=== PATIENT | male | born 1990 | race Caucasian/White ===

== ENCOUNTER 2017-01-22 10:37 | Observation (INO) | payer OTHER, BC, MEDICAID ==
[2017-01-22] MEDS ORDERED: ONDANSETRON 4 MG/2 ML VIAL IVP ONE (11:09)
[2017-01-22] MEDS ORDERED: NS 1,000 ML IV ONE (11:09)
--- NOTE | 2017-01-22 11:15 | UCPHY ---
H & P Time Seen by Provider: 01/22/17 11:08 Patient Type: Established HPI/ROS: HPI Vomiting since Wednesday. 26-year-old male by private vehicle with his mother. This patient has an extensive psychiatric history. Mother reports that he has been complaining of intermittent upper abdominal/epigastric and right upper quadrant discomfort since Wednesday. He has had associated nonbilious, nonbloody vomiting. No diarrhea. Normal bowel movement yesterday. No bloody or melenic stool. No abdominal surgical history. ROS: Constitutional: No fever, no chills. No weakness. Eyes: No discharge. No changes in vision. ENT: No sore throat. No nasal congestion or rhinorrhea. Respiratory: No cough. No shortness of breath. Cardiac: No chest pain, no palpitations. Gastrointestinal: No abdominal pain, no vomiting, no diarrhea. Genitourinary: No hematuria. No dysuria or increased frequency with urination. Musculoskeletal: No back pain. No neck pain. No myalgias or arthralgias. Skin: No rashes. Neurological: No headache. No focal weakness or altered sensation. Past medical history: Schizophrenia, paranoid delusional disorder, attention deficit hyperactivity disorder. On multiple psychiatric medications. Social history: Here with mother. Nonsmoker. No alcohol. Physical Exam: General Appearance: Alert, no distress. Flat affect. This patient is responding to questions appropriately and in full sentences. This patient appears well-hydrated and well-nourished. Eyes: Pupils equal and round no pallor or injection. No lid edema, erythema or injection. Respiratory: There are no retractions, lungs are clear to auscultation with good air movement bilaterally. Cardiovascular: Regular rate and rhythm. No murmur. Gastrointestinal: Abdomen is soft and nontender, no masses, bowel sounds normal. No focal tenderness at McBurney's point. No Narvaez sign. Neurological: Motor sensory function is grossly intact. Cranial nerves are normal. Gait is normal. Skin: Warm and dry, no rashes. Musculoskeletal: Neck is supple and nontender. Extremities are symmetrical. All joints range without pain or impingement. Psychiatric: No agitation. No depression. Database: EKG: Imaging: Right upper quadrant ultrasound; negative. The gallbladder and common bile ducts are normal. No fluid. Results were discussed with staff radiologist Dr. Riojas. Procedures: Emergency department course: IV placed, patient started on IV normal saline with 1 L to be given over the next hour for hydration. His abdominal exam is benign. However, based on his history we will work him up for gallbladder pathology. Appropriate imaging and blood work ordered. 12:30 p.m., patient re-evaluated. Sleeping at this time. Repeat abdominal exam is soft, nontender and nondistended. Easily arousable. Results of ultrasound discussed with him and his mother. Dehydrated condition and kidney dysfunction discussed with them. Need for admission discussed. The mother feels comfortable taking him over to [facility]. Instructions on transport and admission process discussed with her. 12:35 p.m., discussed with on-call hospitalist. Patient accepted for admission to Dr. Borges of the hospitalist service. Plan for IV hydration and antiemetics. Patient's remaining emergency department course under my care uneventful. He was discharged from Urgent Care with his mother to [facility] for admission as above. Differential Diagnosis: The differential diagnosis on this patient includes but is not limited to food borne illness, viral gastroenteritis. Acute cholecystitis, cholangitis, pancreatitis, obstructive disorder unlikely. This represents a partial list of diagnoses considered. These considerations are based on history, physical exam , past history, reassessment and diagnostic testing. Smoking Status: Former smoker Constitutional: Initial Vital Signs Temperature (C) 36.6 C 01/22/17 11:11 Heart Rate 75 01/22/17 11:11 Respiratory Rate 18 01/22/17 11:11 Blood Pressure 109/83 H 01/22/17 11:11 O2 Sat (%) 93 01/22/17 11:11 O2 Delivery Mode Room Air Allergies/Adverse Reactions: paliperidone Allergy (Unknown, Verified 01/22/17 13:44) risperidone [From Risperdal] Allergy (Unknown, Verified 01/22/17 13:44) Home Medications: Medication Instructions Recorded Brexpiprazole [Rexulti 1 MG (*)] 1 mg PO DAILY@14 01/22/17 Herbals/Supplements -Info Only 1 ea PO DAILY 01/22/17 Levomefolate/Algal Oil 1 each PO DAILY 01/22/17 [Deplin-Algal Oil 15 mg Capsule] Medical Decision Making - Data Points Laboratory Results: Laboratory Results 01/22/17 11:20 01/22/17 11:20 01/22/17 05:45 Ur Random Creatinine 263.1 mg/dL mg/dL Ur Random Sodium < 5.0 mEq/L L mEq/L (30-90) Medications Given: Discontinued Medications Sodium Chloride (Ns) 1,000 mls @ 0 mls/hr IV ONCE ONE PRN Reason: Wide Open Stop: 01/22/17 11:10 Last Admin: 01/22/17 11:47 Dose: 1,000 mls Ondansetron HCl (Zofran) 4 mg IVP EDNOW ONE Stop: 01/22/17 11:10 Last Admin: 01/22/17 11:48 Dose: 4 mg Potassium Chloride (Klor-Con) 40 meq PO ONCE ONE PRN Reason: Protocol Stop: 01/22/17 18:10 Last Admin: 01/22/17 18:40 Dose: 40 meq Departure - Departure Disposition: [facility] Inpatient Acute Clinical Impression: Vomiting, Dehydration, Renal insufficiency Condition: Fair - PQRS PQRS Measurement: Not applicable.
[2017-01-22 11:26] LABS: % IMMATURE GRANULYOCYTES 0.4 % (0.0-1.1); ABSOLUTE IMMATURE GRANULOCYTES 0.06 10^3/uL (0.00-0.10); ADD DIFF? NO; ADD MORPH? NO; ADD SCAN? NO; ATYPICAL LYMPHOCYTE FLAG 0 (0-99); FRAGMENT RBC FLAG 0 (0-99); HEMATOCRIT 47.6 % (40.0-51.0); HEMOGLOBIN 17.6 g/dL (13.7-17.5); LEFT SHIFT FLG 0 (0-99); LIPEMIA HEMOLYSIS FLAG 90 (0-99); MEAN CELL HEMOGLOBIN 28.8 pg (27.9-34.1); MEAN CELL VOLUME 77.9 fL (81.5-99.8); MEAN PLATELET VOLUME 9.7 fL (8.7-11.7); PLATELET CLUMPS FLAG 0 (0-99); PLATELET COUNT 306 10^3/uL (150-400); RED BLOOD CELL COUNT 6.11 10^6/uL (4.40-6.38)
[2017-01-22 11:40] LABS: ALBUMIN 5.2 g/dL (3.5-5.0); BILIRUBIN,TOTAL 0.7 mg/dL (0.1-1.4); BILIRUBIN-CONJUGATED 0.4 mg/dL (0.0-0.5); BILIRUBIN-UNCONJUGATED 0.3 mg/dL (0.0-1.1); CALCIUM 10.2 mg/dL (8.5-10.4); CREATININE 2.1 mg/dL (0.7-1.3); TOTAL PROTEIN 8.5 g/dL (6.3-8.2)
[2017-01-22] MEDS ORDERED: oxyCODONE IR 5 MG TAB PO PRN (14:42)
[2017-01-22] MEDS ORDERED: ACETAMINOPHEN 325 MG TAB PO PRN (14:42)
[2017-01-22] MEDS ORDERED: HYDROmorphONE/DILAUDID 1 MG/ML SYR IVP PRN (14:42)
[2017-01-22] MEDS ORDERED: LORazepam 2 MG/ML INJ IVP PRN (14:42)
[2017-01-22] MEDS ORDERED: ONDANSETRON 4 MG/2 ML VIAL IVP PRN (14:42)
[2017-01-22] MEDS ORDERED: PROMETHAZINE HCL 25 MG/ML INJ IVP PRN (14:42)
[2017-01-22] MEDS ORDERED: NS 1,000 ML IV SCH (14:45)
[2017-01-22] MEDS ORDERED: PROTOCOL MAGNESIUM 1 DOSE IV PRN (17:24)
[2017-01-22] MEDS ORDERED: PROTOCOL POTASSIUM 1 DOSE MISC PRN (17:24)
--- NOTE | 2017-01-22 17:58 | GHP ---
DATE OF ADMISSION: 01/22/2017 CHIEF COMPLAINT: Nausea, vomiting. HISTORY: This is a 27-year-old man who has a history of schizophrenia which has been intermittently poorly controlled, who presents with several days of nausea, vomiting and poor p.o. intake. He als o has had some mild abdominal pain. History is limited as patient is clearly disorganized secondary to his psychiatric illness, though it sounds as if due to his recurrent nausea and vomiting, he has been unable to take his medications, including his psychiatric medications, leading to worsening of his psychiatric symptoms. He denies fevers or chills. At the time of my evaluation, he states he is both nauseous and hungry. He notes his last meal was this morning. His last vomiting was in the emergency room. PAST MEDICAL HISTORY: 1. Schizophrenia. 2. Paranoid delusional disorder. 3. Attention deficit hyperactivity disorder. SOCIAL HISTORY: This is uncertain. Patient presented with his mother initially but she was not jamil ilable at the time of my evaluation. I was not able to obtain a full social history from the patien t secondary to his psychiatric illness, but apparently he is a nonsmoker and denies drugs or alcohol . FAMILY HISTORY: Per chart review is noncontributory. MEDICATIONS: Include: 1. Deplin algal oil. 2. Brexpiprazole. ALLERGIES: Include haloperidol and risperidone. PHYSICAL EXAMINATION: VITAL SIGNS: BP 118/71, heart rate 108, respiratory rate 16, O2 sats 100% on room air. Temperature is 36.9. GENERAL APPEARANCE: This is a well-developed, well-nourished kinga g man. He is in moderate distress. EYES: Anicteric. HENT: Oropharynx clear. CARDIOVASCULAR: T achy, regular, no MRG. PULMONARY: CTA bilaterally. ABDOMEN: Soft, nontender, positive bowel soun ds. EXTREMITIES: No clubbing, cyanosis, or edema. SKIN: Warm, dry, well perfused. NEURO/PSYCH: Patient is tangential, somewhat agitated, but pleasant and interactive. CLINICAL DATA: Labs reviewed. Significant for white blood cell count of 14.09, hematocrit of 47.6, platelets are 306. Chemistry remarkable for a potassium of 3, creatinine of 2.1. AST of 65. Lipa se is 250. Anion gap is elevated at 27. Abdominal ultrasound shows no cholelithiasis or biliary ductal dilation. ASSESSMENT/PLAN: This is a 27-year-old man with past medical history of schizophrenia that has been poorly controlled presenting with nausea, vomiting and acute kidney injury. 1. Nausea and vomiting, sounds most consistent with a viral gastroenteritis. He does not have a ve ry remarkable abdominal exam. Lipase is normal. Liver function tests relatively normal other than mild transaminitis. We will treat conservatively for now with IV fluids and antiemetics. 2. Acute kidney injury in the setting of prolonged nausea and vomiting, likely prerenal. We will o btain urine sodium and creatinine, continue to monitor, continue IV fluids and trend overnight. 3. Anion gap metabolic acidosis, rather marked and likely secondary to starvation ketoacidosis. We will obtain a lactic acid level, as well as check a urinalysis for ketones. We will recheck in the morning. 4. Hypokalemia, will replete. Likely secondary to volume depletion. 5. Decompensated schizophrenia, apparently in the setting of being unable to take his usual medicat ions secondary to prolonged nausea and vomiting. Further history will need to be obtained when jaquan ent's mother is available. We will attempt to resume his home medications. If his symptoms do not improve, he may end up needing an inpatient psychiatric evaluation. He is behaviorally controlled. 6. Disposition: Observation status. Suspect he will need less than 48 hours stay for evaluation a nd management of above. 7. Patient is new to my care. Old records reviewed, summarized as per HPI and past medical history . Care plan reviewed with ER physician, including plans for volume resuscitation. /[id number]/MODL
[2017-01-22] MEDS ORDERED: POTASSIUM CL 10 MEQ TAB PO ONE (18:09)
[2017-01-22 19:17] LABS: POTASSIUM 2.9 mEq/L (3.5-5.2)
[2017-01-22] MEDS ORDERED: NS W/ 20 KCl/L 1,000 ML IV SCH (20:30)
[2017-01-23 06:20] LABS: % IMMATURE GRANULYOCYTES 0.7 % (0.0-1.1); ABSOLUTE IMMATURE GRANULOCYTES 0.06 10^3/uL (0.00-0.10); ADD DIFF? NO; ADD MORPH? NO; ADD SCAN? NO; ATYPICAL LYMPHOCYTE FLAG 10 (0-99); FRAGMENT RBC FLAG 0 (0-99); HEMATOCRIT 44.5 % (40.0-51.0); HEMOGLOBIN 15.7 g/dL (13.7-17.5); LEFT SHIFT FLG 0 (0-99); LIPEMIA HEMOLYSIS FLAG 90 (0-99); MEAN CELL HEMOGLOBIN 29.3 pg (27.9-34.1); MEAN CELL HEMOGLOBIN CONCENTR. 35.3 g/dL (32.4-36.7); MEAN PLATELET VOLUME 9.8 fL (8.7-11.7); PLATELET CLUMPS FLAG 0 (0-99); PLATELET COUNT 222 10^3/uL (150-400); RED BLOOD CELL COUNT 5.36 10^6/uL (4.40-6.38); RED CELL DISTRIBUTION WIDTH 13.4 % (11.5-15.2)
[2017-01-23 06:21] LABS: COLOR YELLOW; LEUKOCYTE ESTERASE,URINE NEGATIVE (NEGATIVE); NITRITE,URINE NEGATIVE (NEGATIVE)
[2017-01-23 06:33] LABS: ANION GAP 13 mEq/L (8-16); CALCIUM 9.2 mg/dL (8.5-10.4); CARBON DIOXIDE 27 mEq/l (22-31); CHLORIDE 96 mEq/L (97-110); GLOMERULAR FILTRATION RATE > 60; GLUCOSE 100 mg/dL (70-100); MAGNESIUM 2.7 mg/dL (1.6-2.3); POTASSIUM 3.2 mEq/L (3.5-5.2); SODIUM 136 mEq/L (134-144)
[2017-01-23] MEDS ORDERED: POTASSIUM CL 10 MEQ TAB PO ONE ×2 (07:27→10:00)
[2017-01-23] MEDS: ONDANSETRON DISINTEGRATING 4 MG TAB PO PRN ×2 (08:22→13:05)
[2017-01-23] MEDS ORDERED: Levomefolate/Algal Oil [Deplin-Algal Oil 15 Mg Capsule] PO SCH (09:00)
[2017-01-23] MEDS ORDERED: POTASSIUM CL 20 MEQ TAB PO ONE (10:30)
[2017-01-23] MEDS ORDERED: BREXPIPRAZOLE 1 MG TAB PO SCH (14:00)
[2017-01-23] MEDS ORDERED: BREXPIPRAZOLE 2 MG TAB PO SCH (14:00)
[2017-01-23] MEDS: DOCUSATE SODIUM 100 MG CAP PO SCH ×2 (14:18→21:09)
--- NOTE | 2017-01-23 15:28 | HOSPPROG ---
Hospitalist Progress Note Assessment/Plan: N/V - this may be self induced in the setting of delusions based on his behaviors today. No active vomiting here, but pt putting finger down his throat. LENA - resolved with IVF's. Schizophrenia with active delusions - continue outpt meds. Psych eval today, he 'll be placed on M1 hold and transferred to ICU while awaiting inpt psych bed. Full code Subjective: Pt is delusional, non-sensical. Denies abdominal pain. Perseverates on his bowels, but not making much sense. Denies active hallucinations, but he is delusional. Objective: Vital Signs Temp Pulse Resp BP Pulse Ox 36.1 C 77 16 131/71 H 98 01/23/17 08:00 01/23/17 08:00 01/23/17 08:00 01/23/17 08:00 01/23/17 08:00 Laboratory Results 01/23/17 06:00 01/23/17 06:00 - Physical Exam Constitutional: no apparent distress Eyes: PERRL Ears, Nose, Mouth, Throat: moist mucous membranes Cardiovascular: regular rate and rhythym Respiratory: no respiratory distress, clear to auscultation Gastrointestinal: normoactive bowel sounds, soft, non-tender abdomen Skin: warm Musculoskeletal: full muscle strength Psychiatric: other (non-linear though process, delusional, anxious) ICD10 Worksheet Patient Problems: Problems Problem Status Onset Dehydration Acute Renal insufficiency Acute Vomiting Acute
[2017-01-23 16:17] VITALS: TEMP 97.5
[2017-01-23 16:41] VITALS: BP 146/75
[2017-01-23] MEDS ORDERED: LORazepam 2 MG/ML INJ IVP ONE (21:00)
[2017-01-23 21:08] VITALS: PULSE 85; RESP 16; O2SAT 100
--- NOTE | 2017-01-24 21:14 | GDS ---
DISCHARGE DIAGNOSES: 1. Nausea and vomiting, resolved. 2. Acute kidney injury, resolved. 3. Schizophrenia with active delusions requiring inpatient psychiatric hospitalization. HISTORY: For details, please see dictated history and physical dated January 22, 2017. In brief, the patient is a 26-year-old male with history of schizophrenia who presents to the emergency department with nausea, vomiting and poor oral intake. He was found to have an acute kidney injury and was ad mitted to the hospital for further management. HOSPITAL COURSE: The patient received IV fluid resuscitation. His labs normalized with his creatin ine decreasing from 2.1-1. He had a normal urinalysis. His urine drug screen was positive for dwayne roger and benzodiazepines. The following morning, the RN reported he was self-inducing vomiting and he also appeared delusional. A psychiatric evaluation was obtained and he was medically cleared an d ultimately transferred to the inpatient psychiatric unit for stabilization. DISPOSITION: The patient is discharged to [address] [place] [address] Health Unit at [facility]. DISCHARGE MEDICATIONS: Please see DrinkSendo for complete updated outpatient medication list. FOLLOWUP: Dr. Ceci Flores, primary care provider, as well as Psychiatry. /[id number]/MODL
== END 2017-01-23 22:11 ==
LOC: CED 10:37 → CEDHOLD 12:31 → F1N 14:01 → F2N 01-23 16:40
PROVIDERS: ADMIT Internal Medicine; ATTEND Internal Medicine
DX: N17.9 Acute kidney failure, unspecified (principal); R11.2 Nausea with vomiting, unspecified; E87.6 Hypokalemia; F20.0 Paranoid schizophrenia; E87.2 Acidosis; Z87.891 Personal history of nicotine dependence
CPT/HCPCS: 76705; 96374; G0378; G0463; J1170; J2405; 80048-PO; 80076-PO; 80305; 83690-PO; 85025-PO

== ENCOUNTER 2017-01-23 22:20 | Inpatient (IN) | payer OTHER, BC, MEDICAID ==
[~2017-01-23 22:20] MED LIST: OLANZapine 10 MG TAB PO PRN
[2017-01-23] MEDS: LORazepam 1 MG TAB PO PRN (22:55)
[2017-01-24] MEDS: BREXPIPRAZOLE 1 MG TAB PO SCH (08:33)
[2017-01-24] MEDS ORDERED: NICOTINE 21 MG/24 HR PATCH TD SCH (09:00)
[2017-01-24] MEDS: LORazepam 1 MG TAB PO PRN ×2 (10:33→21:09)
[2017-01-24] MEDS: MAGNESIUM HYDROXIDE 30 ML UDCUP PO PRN (11:35)
--- NOTE | 2017-01-24 20:42 | SOAPPROG ---
SOAP Progress Note Assessment/Plan: Assessment: 26yo with psychotic d/o and 18 past psych admissions, most recently 3 mo ago to [facility], has been noncompliant with meds Rexulti and uptitration, becoming increasingly delusional. Was initially admitted for IV hydration after eval in Urgent Care 01/22 where mother took him after 2 days of N/V and abd pain. Pt had delusional thoughts around his N/V c/o western medicine making him more ill, being poisoned by neighbors, and needing various herbs to relieve blockages. Was noted to be self-inducing vomiting, and was hyperventilating to send breath to "blocked mesentery". 01/24/2017 12:00 Staff report pt slept 6hr. multiple somatic complaints. is convinced he needs to be on a renal diet. Hx of inducing vomiting related to somatic delusions. Pt interviewed. denied any s/e to current meds, has been given ativan 2mg prn and restarted on Rexulti. informed no renal diet needed, explained he was "pre-renal" when dehydrated if this is where his misunderstanding came from. Calm, cooperative, denied SI/HI or any AH/VH. +somatic delusions. Discussed possible THC link to his N/V/Abd pain sxs, "I do think I need to cut down" on THC. Will restart outpatient med Rexulti 1mg, cont prn Ativan. Monitor for any self- induced vomiting or eating d/o bx driven by his delusions. Safety precautions, incl assault prec Admission dictation to follow Objective: Vital Signs Temp Pulse Resp BP Pulse Ox 36.5 C 80 14 124/59 H 98 01/24/17 06:39 01/24/17 06:39 01/24/17 06:39 01/24/17 06:39 01/24/17 06:39 - Pending Discharge Pending Discharge Within 24 Hours: No Pending Discharge Within 48 Hours: No ICD10 Worksheet Patient Problems: Problems Problem Status Onset Dehydration Acute Renal insufficiency Acute Vomiting Acute
[2017-01-25] MEDS: ACETAMINOPHEN 325 MG TAB PO PRN ×3 (00:28→22:36)
--- NOTE | 2017-01-25 00:50 | BAPA ---
DATE OF SERVICE: 01/24/2017 CHIEF COMPLAINT: "I'm tired and lonely and wanted go home....I'm here because on the I forgot my testosterone shot and I felt bad. A few days before that , I had some mesenteric blockages." HISTORY OF PRESENT ILLNESS: Patient is a 26-year-old male with a history of schizophrenia, who was brought to the Urgent Care clinic by his mother on 2016 complaining of vomiting x 2 days and intermittent upper abdominal/ epigastric discomfort. Upon evaluation, it was determined he needed to be hospitalized for IV hydration and antiemetics, and was sent to [facility] for admission. At [facility], patient was evaluated and noted to be disorganized due to psychiatric illness and had noncompliant with his outpatient medications leading to worsening of psychiatric symptoms. Abdominal ultrasound was negative , and he was initially felt to have a viral gastroenteritis, treated with IV fluid and antiemetics. He was also found to have acute kidney injury in the setting of prolonged nausea and vomiting, felt to be prerenal, and anion gap metabolic acidosis, which was rather marked and likely secondary to starvation ketoacidosis, and hypokalemia, most likely due to volume depletion. Once he was medically stabilized, he was evaluated for psychiatric admission. While on hospital service, he was noted to be attempting to self induce vomiting, putting his finger down his throat. He was delusional and nonsensical with much perseveration on his bowels. On psychiatric evaluation 01/23/2017, patient admitted to EPS that he had been making himself sick by causing himself to throw up and hyperventilate the last 2 days. He was placed on an M1 hold and determined to be in need of psychiatric admission. On admission, reports he has been depressed for 3-4 days with decreased energy although sleeping well. Denies racing thoughts. Denied any auditory or visual hallucinations. States concentration is "okay." Enjoys martial arts, meditating, and reading. Denied any psychotic symptoms of thought insertion or thought withdrawal except when using ecstasy. Did not endorse any delusions overtly; however, has expressed several somatic delusions and has a history of experiencing such. Told staff on medical unit that he had demons in his abdomen. No current physical complaints. No nausea except does have right hip pain chronically x10 years. PAST PSYCHIATRIC HISTORY: Patient has a history of delusional and psychotic symptoms in the past, having been diagnosed with unspecified schizophrenia spectrum and other psychotic disorder. He also has a history of ADHD. There was no history of prior suicide attempts, although patient stated in the past he had taken a bottle of antipsychotic medication because he was "hungry and they tasted sweet." He has been psychiatrically hospitalized approximately 18 times, 5 times in the past year, including most recently at [facility] 10/2016. There is no reported history of violence toward others. Outpatient psychiatrist is Dr. Janene Hunter. Therapist through [facility] is Brynn Vallejo. In the past, he received outpatient psychiatric treatment at [facility], including receiving IM long-acting medication (Risperdal Consta, and Invega) with Dr. Martinez. PAST PSYCHIATRIC MEDICATIONS: Regarding outpatient psychiatric medications, he only is interested in taking Rexulti and Deplin. States he had genetic testing at [facility] and was noted to be a "poor metabolizer," therefore, several medications were determined to not be effective for him, per his report. He also maintains he needs to get back on his testosterone and that several of his current problems are because he missed his testosterone injection over 2 weeks ago. Last took 150 mg 2 weeks prior to his last dose, which was due on 01/22, and he never received. For this, he sees a Dr. Calix at [facility] in [place]. Patient reports having been prescribed Strattera and Adderall in the past but not taking anything now for his reported ADHD diagnosis. He talked of history of weighing more than 300 pounds and feels that he has had an ongoing problem with nausea and vomiting since he gained weight to over 300 pounds in 2012, which he felt was medication related, primarily to Zyprexa. Reports allergy to Risperdal and Invega, giving him a "milk line." SUBSTANCE USE HISTORY: Patient endorsed a history of cocaine, methamphetamine, and marijuana in the past. Reports no cocaine for approximately 1 year, last meth use 6 months ago, marijuana use is almost daily. He denied having dabbing , reports using approximately 3.5 g per day of marijuana maximum, approximately every other day. Denied any opiates or heroin use. No LSD "ever," pressured into trying mushrooms once. No history of IV drug abuse. Used ecstasy in 2014, "Guinean style" and "Euro made pills" of ecstasy in 08/2016. Acupuncture generally for pain, as notes no history of opiate use. Last got drunk in 2014 he recalls. Uses alcohol "rarely," last drink 2 glasses of wine with his mother 1 week ago. He smokes cigarettes 1 pack per day max. No cocaine since 02/2015 when he felt he was "poisoned with it." Denied any other cad designer drafter drugs. Likes marijuana although notes it "makes my spiritual neediness worse." With herbs he takes and plans to try. Particularly presently using "Bu Now Wan," which he states helps circulate the energy and reconditions the phlegm in his long channels. Plans to take James China Campbellan, which he feels will help the nourish the yen in his kidneys. Also Xial Yo Wan to help dredge his liver channels and decrease blockages. Drinks caffeine, 2-5 cups per week. Still has some nausea and gastrointestinal discomfort. PAST MEDICAL HISTORY: History of recurrent nausea/vomiting and gastric discomfort as per HPI. Chronic right hip pain. Low testosterone by self- reported history. LEGAL: Currently on probation for careless driving for 6 more months. Also states he was charged with 3rd degree assault against his mother recently when "I pulled a trash can out of her hands and she fell back." Recalls another legal incident in [place] when he "ran away from a welfare check and got tazed," then was put on probation at age 20. FAMILY PSYCHIATRIC HISTORY: Mother has a history of depression, also alcohol on mother's side of the family. Records indicate mother may have had a history of overdose on pills and alcohol in the past. SOCIAL HISTORY: Lives with his mother. Parents when patient was 3. He has 1 brother 3 years older, minimal communication with him. Thinks that brother "may drink and have a problem with his vasectomy". Father lives out of state. 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 Longest job was with [employer] for 3 years. Lived alone from [id number], which he reports was "scary." Attended [employer] then [employer] then [employer] and reports he was 1 credit shy of completing a freshman year. MENTAL STATUS EXAMINATION: calm, cooperative, casually dressed, normal speech rate and volume becoming more intense with his descriptions of odd physical sensations, normal eye contact, in behavioral control during interview, mood "okay", affect restricted, thoughts notable for somatic delusional complaints at times illogical. denied auditory or visual hallucinations and did not appear to be responding to internal stimuli. denied any suicidal ideation or thoughts to harm others. cognition conversationally intact. insight and judgment both poor. DIAGNOSES ON ADMISSION: 1. Schizophrenia, acute exacerbation. 2. Cannabis use disorder, severe. 3. ADHD, by history PLAN: Admit to 3N, safety precautions including assault precautions. Continue M1 hold. Restart Brexiprazole 1mg daily, add Ativan 1-2mg q 6 hours prn. Had been agitated while on medical unit, and with history of assault charge. Continue Deplin 15mg daily, mother will need to bring home medication. Wants his Testosterone 150mg IM. Not clearly indicated at this time, consider check level. Collateral from [facility]. Also anticipate patient will need STC and court-ordered medications due to his long history of noncompliance. Seems may have been on long-acting injectables in the past. Plan to add another antipsychotic which comes in long-acting injectable after getting more history from [facility]. May have had nausea/vomiting and GI distress from excessive cannabis use. Continue to monitor, hospitalist consult if needed. Monitor for any symptoms of eating disorder, since talked of having nausea/vomiting since weight gain on Zyprexa in the past, although his recent self-induced vomiting seems more driven by somatic delusional preoccupations. Unclear contribution of multiple herbal formulations he reports taking, in addition to THC, to his psychosis. ESTIMATED LENGTH OF STAY: 5 to 7 days. /[id number]/MODL MTDD
[2017-01-25] MEDS: MAG HYDROX/AL HYDROX/SIMETH 30 ML UDCUP PO PRN (06:50)
[2017-01-25] MEDS: LORazepam 1 MG TAB PO PRN ×3 (08:10→19:18)
[2017-01-25] MEDS: BREXPIPRAZOLE 1 MG TAB PO SCH (10:36)
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
[2017-01-26] MEDS: MAG HYDROX/AL HYDROX/SIMETH 30 ML UDCUP PO PRN (03:13)
[2017-01-26] MEDS: MAGNESIUM HYDROXIDE 30 ML UDCUP PO PRN (06:31)
[2017-01-26] MEDS: ACETAMINOPHEN 325 MG TAB PO PRN ×2 (06:48→16:48)
[2017-01-26] MEDS: LORazepam 1 MG TAB PO PRN ×3 (07:01→19:56)
[2017-01-26] MEDS: ARIPiprazole 5 MG TAB PO SCH (08:25)
[2017-01-26] MEDS ORDERED: NON-FORMULARY NEW DRUG (Levomefolate/Algal Oil [Deplin-Algal Oil 15 Mg Capsule] 1 EACH) PO SCH (09:30)
--- NOTE | 2017-01-26 18:10 | SOAPPROG ---
SOAP Progress Note Assessment/Plan: Assessment: Plan: Subjective: Pt seen, discussed with staff. Reports feeling "confused about social networking." Makes numerous odd and tangential references. Laughs inappropriately. Friendly but unable to convey his thoughts meaningfully. Cannot discuss the process of the STC either or make his desires for ongoing treatment known. He does state that he wants to take the Abilify. Objective: Vital Signs Temp Pulse Resp BP Pulse Ox 36.9 C 80 16 129/96 H 99 01/26/17 06:00 01/26/17 06:00 01/26/17 06:00 01/26/17 06:00 01/26/17 06:00 MSE: Calm, coop. Affect is elevated, odd, inapprop. Mood is "good." TP disorganized. TC reveals bizarre, grandiose and paranoid delusions. Denies AH' s but appears to be internally preoccupied at times. - Time Spent With Patient Time Spent With Patient: 25" - Pending Discharge Pending Discharge Within 24 Hours: No Pending Discharge Within 48 Hours: No ICD10 Worksheet Patient Problems: Problems Problem Status Onset Dehydration Acute Renal insufficiency Acute Vomiting Acute
[2017-01-27] MEDS: ACETAMINOPHEN 325 MG TAB PO PRN ×2 (04:08→18:25)
[2017-01-27] MEDS: LORazepam 1 MG TAB PO PRN ×3 (04:08→18:26)
[2017-01-27] MEDS: MAG HYDROX/AL HYDROX/SIMETH 30 ML UDCUP PO PRN (05:37)
[2017-01-27] MEDS: ARIPiprazole 5 MG TAB PO SCH (08:47)
[2017-01-27] MEDS: ALGAL OIL PO SCH (11:04)
[2017-01-27] MEDS: LEVOMEFOLATE PO SCH (11:04)
--- NOTE | 2017-01-27 18:26 | SOAPPROG ---
SOAP Progress Note Assessment/Plan: Assessment: Plan: 01/27/17 18:24 Remains very disorganized. WIll titrate Abilify, monitor. Subjective: Pt seen, discussed with staff. Remains nonsensical, disorganized. Unable to express needs or discuss his condition or care. Pleasant and interactive. No behavioral issues. Objective: Vital Signs Temp Pulse Resp BP Pulse Ox 36.7 C 90 18 136/61 H 97 01/27/17 06:00 01/27/17 06:00 01/27/17 06:00 01/27/17 06:00 01/27/17 06:00 MSE: Well-groomed, pleasant and coop. Affect is elevated with hebephrenic grin. Mood is "great" TP disorganized. TC reveals paranoid and grandiose thoughts, internal preoccupation. - Time Spent With Patient Time Spent With Patient: 15" - Pending Discharge Pending Discharge Within 24 Hours: No Pending Discharge Within 48 Hours: No ICD10 Worksheet Patient Problems: Problems Problem Status Onset Dehydration Acute Renal insufficiency Acute Vomiting Acute
[2017-01-28] MEDS: LORazepam 1 MG TAB PO PRN ×4 (01:25→21:41)
[2017-01-28] MEDS: MAG HYDROX/AL HYDROX/SIMETH 30 ML UDCUP PO PRN (02:45)
[2017-01-28] MEDS: ARIPiprazole 5 MG TAB PO SCH (09:31)
[2017-01-28] MEDS: LEVOMEFOLATE PO SCH (09:31)
[2017-01-28] MEDS: ALGAL OIL PO SCH (09:31)
[2017-01-28] MEDS: MAGNESIUM HYDROXIDE 30 ML UDCUP PO PRN (11:39)
[2017-01-28] MEDS: ACETAMINOPHEN 325 MG TAB PO PRN ×2 (14:43→18:52)
--- NOTE | 2017-01-28 16:06 | SOAPPROG ---
SOAP Progress Note Assessment/Plan: Assessment: Plan: 01/27/17 18:24 Remains very disorganized. WIll titrate Abilify, monitor. 01/28/17 16:06 Slight improvement. CCM. Subjective: Pt seen, discussed with staff. Reports feeling "fine except for my liver pain. " When asked about his purging, he states it was due to "my colon and liver problems." He denied intentionally vomiting at first and then later admitted it. Objective: Vital Signs Temp Pulse Resp BP Pulse Ox 36.7 C 75 12 130/59 H 96 01/28/17 14:42 01/28/17 14:42 01/28/17 14:42 01/28/17 14:42 01/28/17 14:42 MSE: Moderately agitated, fidgety. Affect is constricted, odd. Mood is "good. " TP disorganized though able to answer a few questions appropriately. TC reveals paranoia, internal preoccupation. - Time Spent With Patient Time Spent With Patient: 15" - Pending Discharge Pending Discharge Within 24 Hours: No Pending Discharge Within 48 Hours: No ICD10 Worksheet Patient Problems: Problems Problem Status Onset Dehydration Acute Renal insufficiency Acute Vomiting Acute
[2017-01-29] MEDS: LORazepam 1 MG TAB PO PRN ×4 (06:22→21:55)
[2017-01-29] MEDS: ALGAL OIL PO SCH (08:18)
[2017-01-29] MEDS: LEVOMEFOLATE PO SCH (08:18)
[2017-01-29] MEDS: ARIPiprazole 5 MG TAB PO SCH (08:18)
--- NOTE | 2017-01-29 15:34 | SOAPPROG ---
SOAP Progress Note Assessment/Plan: Assessment: Plan: 01/27/17 18:24 Remains very disorganized. WIll titrate Abilify, monitor. 01/28/17 16:06 Slight improvement. CCM. 01/29/17 15:33 Remains disorganized. More irritable/hostile today. CCM. Subjective: Pt seen, discussed with staff. Remains disorganized, paranoid. Becomes angry when I discuss court process. Perseverates on need to talk to his defense attorney. Will not accept that we have not received notification from the court who it is. Angry and paranoid. Remains somatically focused, especially on bowels. Reverse room protocol effective in curbing purging. Objective: Vital Signs Temp Pulse Resp BP Pulse Ox 36.3 C 105 H 16 141/63 H 95 01/29/17 01:08 01/29/17 01:08 01/29/17 01:08 01/29/17 01:08 01/29/17 01:08 MSE: Agitated, angry, confrontational. Mood is "pissed off." TP disorganized. TC reveals continued paranoid and bizarre delusions, internal preoccupation. - Time Spent With Patient Time Spent With Patient: 25" - Pending Discharge Pending Discharge Within 24 Hours: No Pending Discharge Within 48 Hours: No ICD10 Worksheet Patient Problems: Problems Problem Status Onset Dehydration Acute Renal insufficiency Acute Vomiting Acute
[2017-01-30] MEDS: LORazepam 1 MG TAB PO PRN ×2 (05:46→16:06)
[2017-01-30] MEDS: ALGAL OIL PO SCH (08:40)
[2017-01-30] MEDS: ARIPiprazole 5 MG TAB PO SCH (08:40)
[2017-01-30] MEDS: LEVOMEFOLATE PO SCH (08:40)
[2017-01-30] MEDS: MAGNESIUM HYDROXIDE 30 ML UDCUP PO PRN (11:17)
[2017-01-30] MEDS: ACETAMINOPHEN 325 MG TAB PO PRN (14:25)
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
[2017-01-31] MEDS: ACETAMINOPHEN 325 MG TAB PO PRN ×2 (03:25→19:30)
[2017-01-31] MEDS: LORazepam 1 MG TAB PO PRN (03:26)
[2017-01-31] MEDS: ARIPiprazole 5 MG TAB PO SCH (09:08)
[2017-01-31] MEDS: LEVOMEFOLATE PO SCH (09:09)
[2017-01-31] MEDS: ALGAL OIL PO SCH (09:09)
--- NOTE | 2017-01-31 15:45 | SOAPPROG ---
SOAP Progress Note Assessment/Plan: Assessment:Patient with schizophrenia remains disorganized, speaking in word salad. Continued self-induced vomiting per staff. Some depression. No safety issues. On reverse room lockout due to vomiting. Plan: Continue medications and treatment. Remain on reverse room lock out 01/30/17 17:32 01/31/17 15:42 01/31/17 16:32 Subjective: "I am withdrawing from the testosterone shots." He reports having "a few good ones at [facility](?) due to hypogonadism caused by psychiatric medication including Zyprexa. Zyprexa blocked all of his mesentery. He reports staff told him he was combative, malodorous, and disorganized. "It's a joke on you, but I'm not paranoid about it." "I'm not depressed anymore. Sometimes the pain issues make me finicky." He reports having mainly organ pain, but it's stretching out to some the his treatment points,"the awareness areas, like the liver point on my index finger." He reports some of the areas aren;t healing such as his right thumb and the injury from his towel rack. He reports some anxiety,but the medications are helping this. He says he likes to stay active, and he wouldn't mind "being outside starving, smoking cigarettes as long as I had water with my medications. " "I am not that kid of person even if my best friend is Rob Eastman, someone I met at [facility], who had a little problem with the [facility] staff there." He reports, "spiritual concerns. I don't feel it would be safe for my spiritual healer here. " He reports he inviting them here in the "ICU I didn't know." He goes on to state he is not eating enough, and it is hard to breath here ( begins to breath heavily in and out). "I'd like you to talk with my father about my conduct. Bright idea, may I shave." Objective: Vital Signs Temp Pulse Resp BP Pulse Ox 36.7 C 98 16 141/71 H 96 01/31/17 06:00 01/31/17 06:00 01/31/17 06:00 01/31/17 06:00 01/31/17 06:00 male good eye contact. Speech- word salad at times. Mood- "My mood is actually getting better, better than when I got here." Affect- Anxious. Thought Process- Tangential, disorganized. Thought Content - No SI/HI. No AH/VH. Insight - Poor. - Time Spent With Patient Time Spent With Patient: 35 minutes - Pending Discharge Pending Discharge Within 24 Hours: No Pending Discharge Within 48 Hours: No ICD10 Worksheet Patient Problems: Problems Problem Status Onset Dehydration Acute Renal insufficiency Acute Vomiting Acute
[2017-02-01] MEDS: ACETAMINOPHEN 325 MG TAB PO PRN ×2 (02:09→15:46)
[2017-02-01] MEDS: LORazepam 1 MG TAB PO PRN ×4 (02:37→22:58)
[2017-02-01] MEDS: ARIPiprazole 5 MG TAB PO SCH (07:44)
[2017-02-01] MEDS: ALGAL OIL PO SCH (07:45)
[2017-02-01] MEDS: LEVOMEFOLATE PO SCH (07:45)
--- NOTE | 2017-02-01 14:32 | SOAPPROG ---
SOAP Progress Note Assessment/Plan: Assessment: Plan: 01/27/17 18:24 Remains very disorganized. WIll titrate Abilify, monitor. 01/28/17 16:06 Slight improvement. CCM. 01/29/17 15:33 Remains disorganized. More irritable/hostile today. CCM. 02/01/17 14:32 Better today. Will [facility], await hearing for COM. Subjective: Pt seen, discussed with staff, chart reviewed. Reports feeling "really good." Able to participate in conversation much better. Still derails at times, but able to to come back to topic with prompting. Fewer odd beliefs. Agreeable to signing a "lease" with his mother outlining acceptable behaviors at her home. States he doesn't want to use drugs including cannabis after d/c. Objective: Vital Signs Temp Pulse Resp BP Pulse Ox 36.9 C 59 L 14 141/85 H 96 02/01/17 06:00 02/01/17 06:00 02/01/17 06:00 02/01/17 06:00 02/01/17 06:00 - Time Spent With Patient Time Spent With Patient: 25" - Pending Discharge Pending Discharge Within 24 Hours: No Pending Discharge Within 48 Hours: No ICD10 Worksheet Patient Problems: Problems Problem Status Onset Dehydration Acute Renal insufficiency Acute Vomiting Acute
[2017-02-01] MEDS: MAG HYDROX/AL HYDROX/SIMETH 30 ML UDCUP PO PRN (19:13)
[2017-02-02] MEDS: NICOTINE POLACRILEX 2 MG GUM B PRN (07:06)
[2017-02-02] MEDS: ARIPiprazole 5 MG TAB PO SCH (08:13)
[2017-02-02] MEDS: ALGAL OIL PO SCH (08:16)
[2017-02-02] MEDS: LEVOMEFOLATE PO SCH (08:16)
[2017-02-02] MEDS: ACETAMINOPHEN 325 MG TAB PO PRN ×2 (10:24→17:43)
[2017-02-02] MEDS: LORazepam 1 MG TAB PO PRN (21:05)
[2017-02-03] MEDS: ACETAMINOPHEN 325 MG TAB PO PRN (04:30)
[2017-02-03] MEDS: ARIPiprazole 5 MG TAB PO SCH (08:04)
[2017-02-03] MEDS: LEVOMEFOLATE PO SCH (08:30)
[2017-02-03] MEDS: ALGAL OIL PO SCH (08:30)
--- NOTE | 2017-02-03 12:07 | SOAPPROG ---
SOAP Progress Note Assessment/Plan: Assessment: Plan: 01/27/17 18:24 Remains very disorganized. WIll titrate Abilify, monitor. 01/28/17 16:06 Slight improvement. CCM. 01/29/17 15:33 Remains disorganized. More irritable/hostile today. CCM. 02/01/17 14:32 Better today. Will [facility], await hearing for COM. 02/03/17 12:07 Slow improvement. CCM. Subjective: Pt seen, discussed with staff. Reports feeling "much better." Slept only 4 hours last night, can't explain why. He remains somatically focused, stating his liver kept him up. He has not been witnessed to purge. Remains disorganized, delusional. Objective: Vital Signs Temp Pulse Resp BP Pulse Ox 36.3 C 69 14 126/67 H 96 02/03/17 06:32 02/03/17 06:32 02/03/17 06:32 02/03/17 06:32 02/03/17 06:32 MSE: Calm, interactive. Affect is blunted, stable. Mood is "OK." TP disorganized. TC reveals continued paranoid and somatic delusions. - Time Spent With Patient Time Spent With Patient: 15" - Pending Discharge Pending Discharge Within 24 Hours: No Pending Discharge Within 48 Hours: No ICD10 Worksheet Patient Problems: Problems Problem Status Onset Dehydration Acute Renal insufficiency Acute Vomiting Acute
[2017-02-03] MEDS: LORazepam 1 MG TAB PO PRN ×2 (12:27→23:32)
[2017-02-03] MEDS: MAG HYDROX/AL HYDROX/SIMETH 30 ML UDCUP PO PRN (20:40)
[2017-02-04] MEDS: LEVOMEFOLATE PO SCH (08:38)
[2017-02-04] MEDS: ARIPiprazole 5 MG TAB PO SCH (08:38)
[2017-02-04] MEDS: ALGAL OIL PO SCH (08:38)
[2017-02-04] MEDS: LORazepam 1 MG TAB PO PRN (10:52)
[2017-02-04] MEDS: NICOTINE POLACRILEX 2 MG GUM B PRN (14:32)
--- NOTE | 2017-02-04 16:41 | SOAPPROG ---
SOAP Progress Note Assessment/Plan: Assessment: Plan: 01/27/17 18:24 Remains very disorganized. WIll titrate Abilify, monitor. 01/28/17 16:06 Slight improvement. CCM. 01/29/17 15:33 Remains disorganized. More irritable/hostile today. CCM. 02/01/17 14:32 Better today. Will [facility], await hearing for COM. 02/03/17 12:07 Slow improvement. [facility]. 02/04/17 16:41 Pt has regressed today. Will [facility]. Await COM hearing. Subjective: Pt seen, discussed with staff. Reports feeling "pretty angry." He cannot explain exactly why, however. Staff notes pt's ability to engage appropriately for a time and then derail and become disorganized and delusional. Intermittently agitated, swearing. Becomes angry in groups, had to be excused several times yesterday. Objective: Vital Signs Temp Pulse Resp BP Pulse Ox 36.3 C 104 H 16 150/77 H 94 02/04/17 02:34 02/04/17 02:34 02/04/17 02:34 02/04/17 02:34 02/04/17 02:34 MSE: Well-groomed, moderately agitated. Affect is constricted, irritable. Mood is "pretty mad." TP disorganized. TC reveals paranoid delusions, internal focus. - Time Spent With Patient Time Spent With Patient: 15" ICD10 Worksheet Patient Problems: Problems Problem Status Onset Dehydration Acute Renal insufficiency Acute Vomiting Acute
[2017-02-05] MEDS: LORazepam 1 MG TAB PO PRN ×3 (06:01→23:31)
[2017-02-05] MEDS: ARIPiprazole 5 MG TAB PO SCH (08:04)
[2017-02-05] MEDS: LEVOMEFOLATE PO SCH (09:32)
[2017-02-05] MEDS: ALGAL OIL PO SCH (09:32)
--- NOTE | 2017-02-05 12:54 | SOAPPROG ---
SOAP Progress Note Assessment/Plan: Assessment: Plan: 01/27/17 18:24 Remains very disorganized. WIll titrate Abilify, monitor. 01/28/17 16:06 Slight improvement. CCM. 01/29/17 15:33 Remains disorganized. More irritable/hostile today. CCM. 02/01/17 14:32 Better today. Will [facility], await hearing for COM. 02/03/17 12:07 Slow improvement. [facility]. 02/04/17 16:41 Pt has regressed today. Will [facility]. Await COM hearing. 02/05/17 12:54 Remains disorganized, delusional. Insight and judgment remain very poor. Will [facility]. Await hearing for COM. Subjective: Pt seen, discussed with staff. Reports feeling well and is initially appropriately interactive. He quickly demonstrates blocking and derailment, however, and cannot conduct a meaningful conversation or give goal-directed answers to questions. Coop on the unit, less irritable. Compliant with meds. Objective: Vital Signs Temp Pulse Resp BP Pulse Ox 36.3 C 66 14 134/75 H 100 02/05/17 05:10 02/05/17 05:10 02/05/17 05:10 02/05/17 05:10 02/05/17 05:10 MSE: Well-groomed, pleasant and coop. Affect is odd with persistent incongruous smile. Mood is "good." TP disorganized. TC reveals paranoia and AH's. - Time Spent With Patient Time Spent With Patient: 25" - Pending Discharge Pending Discharge Within 24 Hours: No Pending Discharge Within 48 Hours: No ICD10 Worksheet Patient Problems: Problems Problem Status Onset Dehydration Acute Renal insufficiency Acute Vomiting Acute
[2017-02-05] MEDS: ACETAMINOPHEN 325 MG TAB PO PRN (23:31)
[2017-02-06] MEDS: ARIPiprazole 5 MG TAB PO SCH (09:06)
[2017-02-06] MEDS: ALGAL OIL PO SCH (09:07)
[2017-02-06] MEDS: LEVOMEFOLATE PO SCH (09:07)
[2017-02-06] MEDS: ACETAMINOPHEN 325 MG TAB PO PRN (11:12)
[2017-02-06] MEDS: LORazepam 1 MG TAB PO PRN ×2 (12:45→21:14)
[2017-02-06] MEDS: NICOTINE POLACRILEX 2 MG GUM B PRN (14:53)
--- NOTE | 2017-02-06 23:58 | SOAPPROG ---
SOAP Progress Note Assessment/Plan: Assessment: 26yo with psychotic d/o and 18 past psych admissions, most recently 3 mo ago to [facility], has been noncompliant with meds Rexulti and uptitration, becoming increasingly delusional. Was initially admitted for IV hydration after eval in Urgent Care 01/22 where mother took him after 2 days of N/V and abd pain. Pt had delusional thoughts around his N/V c/o western medicine making him more ill, being poisoned by neighbors, and needing various herbs to relieve blockages. Was noted to be self-inducing vomiting, and was hyperventilating to send breath to "blocked mesentery". 02/06/17 15:30 per staff, slept 4hrs. ate meals, took meds, some indication of self-induced vomiting this AM however. father asking for phone restric as pt calls late in pm and it is 2hrs ahead where father lives. reports mother "mistakenly went to the mortuary today to see about getting me cremated". MSE: calm cooperative, nml speech rate/vol, mood "fine" affect controlled, denied ah/vh or si/hi but +delusional statements and poor insight. PLAN: cont meds, Abilify 10mg and Deplin. resume room lock after meds. on STC Objective: Vital Signs Temp Pulse Resp BP Pulse Ox 36.3 C 84 16 142/72 H 98 02/06/17 01:30 02/06/17 01:30 02/06/17 01:30 02/06/17 01:30 02/06/17 01:30 - Time Spent With Patient Time Spent With Patient: 35min - Pending Discharge Pending Discharge Within 24 Hours: No Pending Discharge Within 48 Hours: No ICD10 Worksheet Patient Problems: Problems Problem Status Onset Dehydration Acute Renal insufficiency Acute Vomiting Acute
[2017-02-07] MEDS: NICOTINE POLACRILEX 2 MG GUM B PRN (04:19)
[2017-02-07] MEDS: OLANZapine DISINTEGR 10 MG TAB PO PRN (04:19)
[2017-02-07] MEDS: LEVOMEFOLATE PO SCH (08:13)
[2017-02-07] MEDS: ALGAL OIL PO SCH (08:13)
[2017-02-07] MEDS: ARIPiprazole 5 MG TAB PO SCH (08:13)
[2017-02-07] MEDS: LORazepam 1 MG TAB PO PRN ×2 (10:18→17:26)
--- NOTE | 2017-02-07 11:22 | SOAPPROG ---
SOAP Progress Note Assessment/Plan: Assessment: 26yo with psychotic d/o and 18 past psych admissions, most recently 3 mo ago to [facility], has been noncompliant with meds Rexulti and uptitration, becoming increasingly delusional. Was initially admitted for IV hydration after eval in Urgent Care 01/22 where mother took him after 2 days of N/V and abd pain. Pt had delusional thoughts around his N/V c/o western medicine making him more ill, being poisoned by neighbors, and needing various herbs to relieve blockages. Was noted to be self-inducing vomiting, and was hyperventilating to send breath to "blocked mesentery". DX: SZP, THC use 02/06/17 15:30 per staff, slept 4hrs. ate meals, took meds, some indication of self-induced vomiting this AM however. father asking for phone restric as pt calls late in pm and it is 2hrs ahead where father lives. reports mother "mistakenly went to the mortuary today to see about getting me cremated". MSE: calm cooperative, nml speech rate/vol, mood "fine" affect controlled, denied ah/vh or si/hi but +delusional statements and poor insight. PLAN: cont meds, Abilify 10mg and Deplin. resume room lock after meds. on [facility] 02/07/17 14:00 Per staff, slept 3hrs. took prn zyprexa 10mg at 4am. delusional statements to peers about hospitals causing cancer states he plans to d/c [facility] as outpt, "I'm planning to ask for my registration to be modified". denies med s/e. pt t/a meds and their action within his system: "the agonism ( receptor) is somewhat helpful to maintain my state of action". MSE: calm cooperative, bearded CM, nml speech rate/vol, mood "pretty good" affect euthymic, denied ah/vh or si/hi but +delusional statements and poor insight. PLAN: -Incr Abilify to 15mg qam. if noted to be sedating, change to HS. cont prn zyprexa. pt asked to divide dose, told no b/c concerns for more opportunities to attempt noncompliance. Goal for transition to [facility] once stabilized, due to long hx of noncompliance. -cont on room lock after meds. -on STC Objective: Vital Signs Temp Pulse Resp BP Pulse Ox 36.6 C 110 H 16 145/99 H 97 02/07/17 06:05 02/07/17 06:05 02/07/17 06:05 02/07/17 06:05 02/07/17 06:05 - Time Spent With Patient Time Spent With Patient: 25min - Pending Discharge Pending Discharge Within 24 Hours: No Pending Discharge Within 48 Hours: No ICD10 Worksheet Patient Problems: Problems Problem Status Onset Dehydration Acute Renal insufficiency Acute Vomiting Acute
[2017-02-07] MEDS: MAG HYDROX/AL HYDROX/SIMETH 30 ML UDCUP PO PRN (12:02)
[2017-02-08] MEDS: ALGAL OIL PO SCH (07:57)
[2017-02-08] MEDS: LEVOMEFOLATE PO SCH (07:57)
[2017-02-08] MEDS: ARIPiprazole 10 MG TAB PO SCH (07:57)
[2017-02-08] MEDS: MAG HYDROX/AL HYDROX/SIMETH 30 ML UDCUP PO PRN (08:43)
[2017-02-08] MEDS: LORazepam 1 MG TAB PO PRN ×3 (08:43→21:01)
[2017-02-08] MEDS: ACETAMINOPHEN 325 MG TAB PO PRN (09:32)
[2017-02-08] MEDS: OLANZapine DISINTEGR 10 MG TAB PO PRN ×2 (12:21→16:57)
--- NOTE | 2017-02-08 14:48 | SOAPPROG ---
SOAP Progress Note Assessment/Plan: Assessment: Plan: 01/27/17 18:24 Remains very disorganized. WIll titrate Abilify, monitor. 01/28/17 16:06 Slight improvement. CCM. 01/29/17 15:33 Remains disorganized. More irritable/hostile today. CCM. 02/01/17 14:32 Better today. Will [facility], await hearing for COM. 02/03/17 12:07 Slow improvement. [facility]. 02/04/17 16:41 Pt has regressed today. Will [facility]. Await COM hearing. 02/05/17 12:54 Remains disorganized, delusional. Insight and judgment remain very poor. Will [facility]. Await hearing for COM. 02/08/17 14:48 Very disorganized, worse than I've seen him. Will [facility], await COM hearing. Subjective: Pt seen, discussed with staff, chart reviewed. He was reportedly agitated, hostile and even physically aggressive with angry posturing over the WE. He is cooperative with me today, but extremely disorganized. Cannot carry on any form of reasonable conversation. Objective: Vital Signs Temp Pulse Resp BP Pulse Ox 35.9 C L 70 16 138/84 H 98 02/08/17 06:00 02/08/17 06:00 02/08/17 06:00 02/08/17 06:00 02/08/17 06:00 MSE: Stiff, closed body posture. Affect is blunted, stable. Mood is "OK." TP disorganized. Unable to carry any concepts. Possible clang associations at one point. - Time Spent With Patient Time Spent With Patient: 25" - Pending Discharge Pending Discharge Within 24 Hours: No Pending Discharge Within 48 Hours: No ICD10 Worksheet Patient Problems: Problems Problem Status Onset Dehydration Acute Renal insufficiency Acute Vomiting Acute
[2017-02-09] MEDS: LORazepam 1 MG TAB PO PRN ×3 (02:58→21:03)
[2017-02-09] MEDS: LEVOMEFOLATE PO SCH (07:47)
[2017-02-09] MEDS: ALGAL OIL PO SCH (07:47)
[2017-02-09] MEDS: ARIPiprazole 10 MG TAB PO SCH (07:48)
[2017-02-09] MEDS: ACETAMINOPHEN 325 MG TAB PO PRN (10:43)
[2017-02-09] MEDS: MAG HYDROX/AL HYDROX/SIMETH 30 ML UDCUP PO PRN ×2 (12:53)
--- NOTE | 2017-02-09 17:55 | SOAPPROG ---
SOAP Progress Note Assessment/Plan: Assessment: Plan: 01/27/17 18:24 Remains very disorganized. WIll titrate Abilify, monitor. 01/28/17 16:06 Slight improvement. CCM. 01/29/17 15:33 Remains disorganized. More irritable/hostile today. CCM. 02/01/17 14:32 Better today. Will [facility], await hearing for COM. 02/03/17 12:07 Slow improvement. [facility]. 02/04/17 16:41 Pt has regressed today. Will [facility]. Await COM hearing. 02/05/17 12:54 Remains disorganized, delusional. Insight and judgment remain very poor. Will [facility]. Await hearing for COM. 02/08/17 14:48 Very disorganized, worse than I've seen him. Will [facility], await COM hearing. 02/09/17 17:54 Improved over yesterday though remains disorganized, paranoid. Clearly gravely disabled. Subjective: Pt seen, discussed with staff. Remains agitated, verbally aggressive. Inciting milieu this morning. Angry and paranoid. Remains disorganized. Objective: Vital Signs Temp Pulse Resp BP Pulse Ox 36.6 C 104 H 14 145/83 H 97 02/09/17 06:00 02/09/17 06:00 02/09/17 06:00 02/09/17 06:00 02/09/17 06:00 MSE: Moderately agitated, though interactive. Affect is irritable. Mood is "good." TP disorganized. TC reveals paranoid thoughts. - Time Spent With Patient Time Spent With Patient: 25" - Pending Discharge Pending Discharge Within 24 Hours: No Pending Discharge Within 48 Hours: No ICD10 Worksheet Patient Problems: Problems Problem Status Onset Dehydration Acute Renal insufficiency Acute Vomiting Acute
[2017-02-10] MEDS: MAG HYDROX/AL HYDROX/SIMETH 30 ML UDCUP PO PRN ×2 (02:26→19:28)
[2017-02-10] MEDS: ACETAMINOPHEN 325 MG TAB PO PRN (03:36)
[2017-02-10] MEDS: NICOTINE POLACRILEX 2 MG GUM B PRN (04:58)
[2017-02-10] MEDS: LORazepam 1 MG TAB PO PRN ×2 (06:42→21:16)
[2017-02-10] MEDS: ARIPiprazole 10 MG TAB PO SCH (08:07)
[2017-02-10] MEDS: LEVOMEFOLATE PO SCH (08:08)
[2017-02-10] MEDS: ALGAL OIL PO SCH (08:08)
--- NOTE | 2017-02-10 12:53 | SOAPPROG ---
SOAP Progress Note Assessment/Plan: Assessment: Plan: 01/27/17 18:24 Remains very disorganized. WIll titrate Abilify, monitor. 01/28/17 16:06 Slight improvement. CCM. 01/29/17 15:33 Remains disorganized. More irritable/hostile today. CCM. 02/01/17 14:32 Better today. Will [facility], await hearing for COM. 02/03/17 12:07 Slow improvement. CCM. 02/04/17 16:41 Pt has regressed today. Will [facility]. Await COM hearing. 02/05/17 12:54 Remains disorganized, delusional. Insight and judgment remain very poor. Will [facility]. Await hearing for COM. 02/08/17 14:48 Very disorganized, worse than I've seen him. Will [facility], await COM hearing. 02/09/17 17:54 Improved over yesterday though remains disorganized, paranoid. Clearly gravely disabled. 02/10/17 12:52 Remains paranoid, internally focused. I/J remains poor. I discussed possible Maintena and pt refuses. Await COM hearing. [facility]. Subjective: Pt seen, discussed with staff. Remains aloof, internally focused, disorganized. Calmer, less hostile today. Compliant with meds. Objective: Vital Signs Temp Pulse Resp BP Pulse Ox 36.9 C 100 18 149/79 H 95 02/10/17 06:00 02/10/17 06:00 02/10/17 06:00 02/10/17 06:00 02/10/17 06:00 MSE: Guarded, internally focused. Affect is constricted, stable. Mood is "good." TP delayed, blocked at times. TC reveals internal focus, odd beliefs. - Time Spent With Patient Time Spent With Patient: 25" - Pending Discharge Pending Discharge Within 24 Hours: No Pending Discharge Within 48 Hours: No ICD10 Worksheet Patient Problems: Problems Problem Status Onset Dehydration Acute Renal insufficiency Acute Vomiting Acute
[2017-02-11] MEDS: LORazepam 1 MG TAB PO PRN (06:06)
[2017-02-11] MEDS: ARIPiprazole 10 MG TAB PO SCH (08:26)
[2017-02-11] MEDS: LEVOMEFOLATE PO SCH (11:08)
[2017-02-11] MEDS: ALGAL OIL PO SCH (11:08)
--- NOTE | 2017-02-11 14:57 | SOAPPROG ---
SOAP Progress Note Assessment/Plan: Assessment: Plan: 01/27/17 18:24 Remains very disorganized. WIll titrate Abilify, monitor. 01/28/17 16:06 Slight improvement. CCM. 01/29/17 15:33 Remains disorganized. More irritable/hostile today. CCM. 02/01/17 14:32 Better today. Will [facility], await hearing for COM. 02/03/17 12:07 Slow improvement. CCM. 02/04/17 16:41 Pt has regressed today. Will [facility]. Await COM hearing. 02/05/17 12:54 Remains disorganized, delusional. Insight and judgment remain very poor. Will [facility]. Await hearing for COM. 02/08/17 14:48 Very disorganized, worse than I've seen him. Will [facility], await COM hearing. 02/09/17 17:54 Improved over yesterday though remains disorganized, paranoid. Clearly gravely disabled. 02/10/17 12:52 Remains paranoid, internally focused. I/J remains poor. I discussed possible Maintena and pt refuses. Await COM hearing. [facility]. 02/11/17 14:58 Trending positively over past two days. [facility]. Subjective: Pt seen, discussed with staff. Bright and conversant, interactive more appropriately. He states he is, "Contemplating what it means to hear the word Jehova." He is calmer over the past two days, less volatile. He continues to struggle with interpersonal interactions due to continued high level of disorganization. He is compliant with PO meds. Objective: Vital Signs Temp Pulse Resp BP Pulse Ox 36.6 C 90 15 127/66 H 98 02/11/17 06:00 02/11/17 06:00 02/11/17 06:00 02/11/17 06:00 02/11/17 06:00 MSE: Calm, coop. Affect is euthymic, smiling, stable, approp. Mood is "good. " TP disorganized. TC reveals some ongoing internal focus, less paranoia. - Time Spent With Patient Time Spent With Patient: 25" - Pending Discharge Pending Discharge Within 24 Hours: No Pending Discharge Within 48 Hours: No ICD10 Worksheet Patient Problems: Problems Problem Status Onset Dehydration Acute Renal insufficiency Acute Vomiting Acute
[2017-02-12] MEDS: LORazepam 1 MG TAB PO PRN ×2 (04:32→14:40)
[2017-02-12] MEDS: ALGAL OIL PO SCH (07:35)
[2017-02-12] MEDS: LEVOMEFOLATE PO SCH (07:35)
[2017-02-12] MEDS: ARIPiprazole 10 MG TAB PO SCH (07:36)
[2017-02-12] MEDS: OLANZapine DISINTEGR 10 MG TAB PO PRN (13:42)
[2017-02-13] MEDS: LORazepam 1 MG TAB PO PRN ×2 (03:20→20:17)
[2017-02-13] MEDS: ACETAMINOPHEN 325 MG TAB PO PRN (04:15)
[2017-02-13] MEDS: NICOTINE POLACRILEX 2 MG GUM B PRN (04:37)
[2017-02-13] MEDS: MAGNESIUM HYDROXIDE 30 ML UDCUP PO PRN ×2 (04:51→14:50)
[2017-02-13] MEDS: ARIPiprazole 10 MG TAB PO SCH (08:31)
[2017-02-13] MEDS: ALGAL OIL PO SCH (08:34)
[2017-02-13] MEDS: LEVOMEFOLATE PO SCH (08:34)
--- NOTE | 2017-02-13 14:40 | SOAPPROG ---
SOAP Progress Note Assessment/Plan: Assessment:Patient with schizophrenia remains disorganized, speaking in word salad. No known vomiting for several days. Continued somatic complaints. No safety issues. On reverse room lockout due to previous vomiting. Plan: Continue medications and treatment. Remain on reverse room lock out 01/30/17 17:32 01/31/17 15:42 01/31/17 16:32 02/13/17 14:22 02/13/17 14:46 Subjective: He reprots a little down caused by the pain, which i s caused by the pain medication. He believes he is getting a little more Tylenol than he needs, but it "makes too much sense to take it." He believes the Tylenol hurts his liver a lot. His pain is all over including his hip. He wants to know if his antipsychotic can be changed to PM to help him sleep through the night. He feels the staff have been a little confusing by telling him his meds are something else. He believes he was told he was getting Zydis, but he got Gabapentin. He feels he was traumatized on Zyprexa on . He feels he was overdosed on it and had to be given smelling salts, ammonia, and coagulant. he goes on to report feeling better on the [place]. His mood is improving on it. He reports asking for help as loud as he can. He has been talking to security. He reprotis circulating pain in his dreams; although, he reports not having dreams. He is not sure if the pain has to do with EOT (electromagnetic oversight [place] of technology) that was stolen from him and has to do with him exercising. This is "from No [employer], the book, so don't blame me for being delusional. I did see the mechanism on the unit for a EKG or maybe a EEG." Objective: Vital Signs Temp Pulse Resp BP Pulse Ox 36.8 C 79 14 136/68 H 97 02/13/17 06:00 02/13/17 06:00 02/13/17 06:00 02/13/17 06:00 02/13/17 06:00 male, appropriately groomed. Good eye contact. Speech- RRR, word salad at times. Mood- "frustrated." Affect- Calm. Thought Process- disorganized , Thought Content - No SI/HI. No AH/VH. Delusional. Insight - Poor. - Time Spent With Patient Time Spent With Patient: 30 - Pending Discharge Pending Discharge Within 24 Hours: No Pending Discharge Within 48 Hours: No ICD10 Worksheet Patient Problems: Problems Problem Status Onset Dehydration Acute Renal insufficiency Acute Vomiting Acute
[2017-02-14] MEDS: LORazepam 1 MG TAB PO PRN ×2 (04:29→16:22)
[2017-02-14] MEDS: ARIPiprazole 10 MG TAB PO SCH (07:50)
[2017-02-14] MEDS: LEVOMEFOLATE PO SCH (07:52)
[2017-02-14] MEDS: ALGAL OIL PO SCH (07:52)
--- NOTE | 2017-02-14 08:34 | HOSPPROG ---
Hospitalist Progress Note Assessment/Plan: 26 yo M w schizophrenia, prolonged behavioral health admit now w concern for interdigital fungal infection toes: probably some degree of fungal infection he notes he is sleeping in socks and wearing them all day w sneakers he mentions he has sandals rec keeping feet open and dry (ie not in socks for a few days) if doesnt improve in a few days, rec topical cream "testosterone withdrawal: he mentions he has been on testosterone injections these are not listed on recent home meds (back to 04/06) certainly testosterone supplimentation could interfere w psych treatment reasonable to check testosterone level (ordered) decision to supplement will be deferred to psych MD schizophrenia: per psych dispo: inpt Subjective: asked to see patient re: toenail fungus Objective: Vital Signs Temp Pulse Resp BP Pulse Ox 36.9 C 79 16 125/71 H 99 02/14/17 06:00 02/14/17 06:00 02/14/17 06:00 02/14/17 06:00 02/14/17 06:00 - Physical Exam Constitutional: no apparent distress, appears nourished Eyes: PERRL, anicteric sclera Ears, Nose, Mouth, Throat: moist mucous membranes, hearing normal Cardiovascular: No tachycardia Respiratory: no respiratory distress Gastrointestinal: soft, non-tender abdomen Genitourinary: no bladder fullness, No peterson in urethra Skin: other (some cracking between toes, minimal erythema) Musculoskeletal: full muscle strength, other (see above) Psychiatric: interacting appropriately ICD10 Worksheet Patient Problems: Problems Problem Status Onset Dehydration Acute Renal insufficiency Acute Vomiting Acute
--- NOTE | 2017-02-14 10:21 | SOAPPROG ---
SOAP Progress Note Assessment/Plan: Assessment: Plan: 01/27/17 18:24 Remains very disorganized. WIll titrate Abilify, monitor. 01/28/17 16:06 Slight improvement. CCM. 01/29/17 15:33 Remains disorganized. More irritable/hostile today. CCM. 02/01/17 14:32 Better today. Will [facility], await hearing for COM. 02/03/17 12:07 Slow improvement. CCM. 02/04/17 16:41 Pt has regressed today. Will [facility]. Await COM hearing. 02/05/17 12:54 Remains disorganized, delusional. Insight and judgment remain very poor. Will [facility]. Await hearing for COM. 02/08/17 14:48 Very disorganized, worse than I've seen him. Will [facility], await COM hearing. 02/09/17 17:54 Improved over yesterday though remains disorganized, paranoid. Clearly gravely disabled. 02/10/17 12:52 Remains paranoid, internally focused. I/J remains poor. I discussed possible Maintena and pt refuses. Await COM hearing. [facility]. 02/11/17 14:58 Trending positively over past two days. CCM. 02/14/17 10:21 Continued slow improvement. [facility]. Subjective: Pt seen, discussed with staff. Reports feeling "pretty good." Calmer in milieu over the past 24 hours per staff reports and my observation. He states he is ready to go back to his mother's home. Continues to refuse Abilify Maintena with me. Objective: Vital Signs Temp Pulse Resp BP Pulse Ox 36.9 C 79 16 125/71 H 99 02/14/17 06:00 02/14/17 06:00 02/14/17 06:00 02/14/17 06:00 02/14/17 06:00 MSE: Calmer, more appropriate, though does derail quickly. Affect is blunted, stable. Mood is "good." TP disorganized. TC reveals paranoid and bizarre thoughts. - Time Spent With Patient Time Spent With Patient: 15" - Pending Discharge Pending Discharge Within 24 Hours: No Pending Discharge Within 48 Hours: No ICD10 Worksheet Patient Problems: Problems Problem Status Onset Dehydration Acute Renal insufficiency Acute Vomiting Acute
--- NOTE | 2017-02-14 14:24 | SOAPPROG ---
SOAP Progress Note Assessment/Plan: Assessment:Patient with schizophrenia remains disorganized, speaking in word salad. No known vomiting for several days. Continued somatic complaints. No safety issues. On reverse room lockout due to previous vomiting. He complained to the hospitalist about low testosterone, so a level was ordered. Plan: Continue medications and treatment. Remain on reverse room lock out Testosterone level pending. 01/30/17 17:32 01/31/17 15:42 01/31/17 16:32 02/13/17 14:22 02/13/17 14:46 02/14/17 14:17 02/14/17 14:24 Subjective: He reports he is a little depressed. Depression is 5-6/10. He believes his depression could be helped with regular PT. He feels a little lethargic, so he would like his Abilify moved to night. He is concerned about EPS symptoms going to the syndrome. When asked what he meant by this. he said, "Acupuncture costs weren't covered by my insurance." He goes on to state that [facility] would not cover the costs because they believe he is a hypochondriac. He reports not wanting to continue to use anxiety medication because he believes it scares his father. He feels his father was concerned Bassam would self medicate. Objective: Vital Signs Temp Pulse Resp BP Pulse Ox 36.9 C 79 16 125/71 H 99 02/14/17 06:00 02/14/17 06:00 02/14/17 06:00 02/14/17 06:00 02/14/17 06:00 male with facial hair wearing dirty pants, but not malodorous. good eye contact. Speech- Word salad at times. Mood- "A little depressed. " Affect- Euthymic. Thought Process- loose connections, tangential. Thought Content -No SI /HI. No AH.VH. +delusional. - Time Spent With Patient Time Spent With Patient: 15 - Pending Discharge Pending Discharge Within 24 Hours: No Pending Discharge Within 48 Hours: No ICD10 Worksheet Patient Problems: Problems Problem Status Onset Dehydration Acute Renal insufficiency Acute Vomiting Acute
[2017-02-14] MEDS ORDERED: ARIPiprazole 10 MG TAB PO SCH (21:00)
[2017-02-15] MEDS: LORazepam 1 MG TAB PO PRN (03:20)
[2017-02-15] MEDS: ALGAL OIL PO SCH (08:01)
[2017-02-15] MEDS: LEVOMEFOLATE PO SCH (08:01)
[2017-02-15] MEDS: MAG HYDROX/AL HYDROX/SIMETH 30 ML UDCUP PO PRN (14:49)
[2017-02-15] MEDS: MAGNESIUM HYDROXIDE 30 ML UDCUP PO PRN (14:53)
--- NOTE | 2017-02-15 15:44 | SOAPPROG ---
SOAP Progress Note Assessment/Plan: Assessment:Patient with schizophrenia remains disorganized, speaking in word salad. No known vomiting for several days. Continued somatic complaints. No safety issues. On reverse room lockout due to previous vomiting. He is asking that this be stopped because he denies being bulimic. Testosterone level pending. Plan: Will increase the Abilify to 30 MG given the severity of the patient's psychosis. Remain on reverse room lock out Testosterone level pending. 01/30/17 17:32 01/31/17 15:42 01/31/17 16:32 02/13/17 14:22 02/13/17 14:46 02/14/17 14:17 02/14/17 14:24 02/15/17 15:41 02/15/17 15:44 02/15/17 16:06 Subjective: He reports he is not doing well. He is not having problems with constipation. He has "lower GI circulation problems." His injury- erector muscle gets better and worst at times. His muscle issues is due to a tailbone injury. He also has a painful neck injury. "I don't know how discovered." He reports he went to PT in the community. "And the whole assault precautions thing." He says, "the oils [facility]." The oils reportedly made it so he was covered by insurance due tot he wrong oils being used. The [place] doctor in charge had something to do with this. He is asking for a pain pill that won't harm his liver. He feel his mesentery is blocked up. He denies being constipated. He reports AH-"bad energy work even coming from myself. Part of my confucianism beliefs. I can give yo the address [address]. 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 He doesn't know if anyone told the parole office he is here. He wants this write to file a bunch of discoveries and take all the blame for reconciling CMS. Objective: Vital Signs Temp Pulse Resp BP Pulse Ox 36.9 C 52 L 14 134/73 H 97 02/15/17 06:00 02/15/17 06:00 02/15/17 06:00 02/15/17 06:00 02/15/17 06:00 male, Speech - word salad at times. Confused, disorganized. Delusion with somatic complaints. No SI/HI. ?AH. Poor insight and judgment. - Time Spent With Patient Time Spent With Patient: 25 - Pending Discharge Pending Discharge Within 24 Hours: No Pending Discharge Within 48 Hours: No ICD10 Worksheet Patient Problems: Problems Problem Status Onset Dehydration Acute Renal insufficiency Acute Vomiting Acute
[2017-02-15] MEDS: ARIPiprazole 10 MG TAB PO SCH (21:11)
[2017-02-16] MEDS: ACETAMINOPHEN 325 MG TAB PO PRN (04:08)
[2017-02-16] MEDS: LORazepam 1 MG TAB PO PRN (04:13)
[2017-02-16] MEDS: LEVOMEFOLATE PO SCH (07:43)
[2017-02-16] MEDS: ALGAL OIL PO SCH (07:43)
[2017-02-16] MEDS: MAG HYDROX/AL HYDROX/SIMETH 30 ML UDCUP PO PRN (12:35)
--- NOTE | 2017-02-16 13:58 | SOAPPROG ---
SOAP Progress Note Assessment/Plan: Assessment:Patient with schizophrenia remains disorganized, speaking in word salad. No known vomiting for several days. Continued somatic complaints. No safety issues. On reverse room lockout due to previous vomiting. He is asking that this be stopped because he denies being bulimic. Testosterone level is normal at 390. It appears he is having heart burn, and this might be exacerbated by the antipsychotic. He wants to shave. Plan: Will increase the Abilify to 30 MG given the severity of the patient's psychosis. Remain on reverse room lock out Will order TUMS for heart burn. Will continue prn Maalox. Will discontinue assault and allow to shave with staff assistance. 01/30/17 17:32 01/31/17 15:42 01/31/17 16:32 02/13/17 14:22 02/13/17 14:46 02/14/17 14:17 02/14/17 14:24 02/15/17 15:41 02/15/17 15:44 02/15/17 16:06 02/16/17 13:52 02/16/17 14:01 Subjective: "I think my door is locked still. A little indigestion stuff with the Tylenol." He does reporting taking Maalox after lunch. He would like to shave. In response to whether he has AH or VH,"Sometimes with the energy work. I like the lights off. I believe that's pretty common. 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 I'm a Daoist." Objective: Vital Signs Temp Pulse Resp BP Pulse Ox 36.9 C 80 16 119/66 95 02/16/17 06:00 02/16/17 06:00 02/16/17 06:00 02/16/17 06:00 02/16/17 06:00 Obese, male with a tarango and mustache. Good eye contact. Speech- Word salad at times. Mood- "Pretty stable. Sometimes the pain creeps up on me." - Time Spent With Patient Time Spent With Patient: 25 - Pending Discharge Pending Discharge Within 24 Hours: No Pending Discharge Within 48 Hours: No ICD10 Worksheet Patient Problems: Problems Problem Status Onset Dehydration Acute Renal insufficiency Acute Vomiting Acute
[2017-02-16] MEDS: CALCIUM CARBONATE 500 MG CHEWABLE TAB PO SCH ×2 (15:31→20:08)
[2017-02-16] MEDS: ARIPiprazole 10 MG TAB PO SCH (20:08)
[2017-02-17] MEDS: ALGAL OIL PO SCH (07:44)
[2017-02-17] MEDS: LEVOMEFOLATE PO SCH (07:44)
[2017-02-17] MEDS: CALCIUM CARBONATE 500 MG CHEWABLE TAB PO SCH ×3 (10:48→19:49)
[2017-02-17] MEDS: OLANZapine DISINTEGR 10 MG TAB PO PRN ×2 (13:16→19:52)
[2017-02-17] MEDS: NICOTINE POLACRILEX 2 MG GUM B PRN (13:58)
--- NOTE | 2017-02-17 14:25 | SOAPPROG ---
SOAP Progress Note Assessment/Plan: Assessment:Patient with schizophrenia remains disorganized, speaking in word salad. No known vomiting for several days. Continued somatic complaints. No safety issues. On reverse room lockout due to previous vomiting. He is asking that this be stopped because he denies being bulimic. Testosterone level is normal at 390. He is now complaining of sialorrhea. No other somatic complaints today. He is no open to considering other medications. Plan: Will continue Abilify. Remain on reverse room lock out Awaiting court ordered medications. 01/30/17 17:32 01/31/17 15:42 01/31/17 16:32 02/13/17 14:22 02/13/17 14:46 02/14/17 14:17 02/14/17 14:24 02/15/17 15:41 02/15/17 15:44 02/15/17 16:06 02/16/17 13:52 02/16/17 14:01 02/17/17 14:15 Subjective: He reports he is no doing "so good" because he has mucous problems. He feels his mucous is dark and yellow., He denies other symptoms suggestive of a cold, sinus, or lung problems. He again asks to go outside. He reports drinking water to stay regular. He reports his sleep is "harsh." She slept from about 9:15 PM to 6:00 AM last night. He denied AH, but he stated "a little bit of energy work , working so hard, able to be distracted- confusing how that would work," when asked about VH. He reports no interest in taking Zyprexa due to past mesentery blockage. He reports being on Clozaril in the past, but he has no interest in that. He reported, "alarm you that my hand candy cutter situation has been fishy. I'm not trying to get at you or back at you, but I'm not trying Olanzapine or Clozapine. Part of my affiliation with the [employer] is they don't let me get hurt." Objective: Vital Signs Temp Pulse Resp BP Pulse Ox 36.6 C 78 16 138/63 H 99 02/17/17 06:00 02/17/17 06:00 02/17/17 06:00 02/17/17 06:00 02/17/17 06:00 Obese, male, recently shaved face, good eye contact, calmly sitting in office chair. Mood- "No so good." Affect- Worried. Thought Process- Tangential. Thought Content-No SI/HI. NO AH/VH. +delusional . - Time Spent With Patient Time Spent With Patient: 25 - Pending Discharge Pending Discharge Within 24 Hours: No Pending Discharge Within 48 Hours: No ICD10 Worksheet Patient Problems: Problems Problem Status Onset Dehydration Acute Renal insufficiency Acute Vomiting Acute
[2017-02-17] MEDS: LORazepam 1 MG TAB PO PRN (17:39)
[2017-02-17] MEDS: ARIPiprazole 10 MG TAB PO SCH (19:47)
[2017-02-18] MEDS: LEVOMEFOLATE PO SCH (08:18)
[2017-02-18] MEDS: ALGAL OIL PO SCH (08:18)
[2017-02-18] MEDS: CALCIUM CARBONATE 500 MG CHEWABLE TAB PO SCH ×3 (08:19→19:06)
[2017-02-18] MEDS: LORazepam 1 MG TAB PO PRN ×2 (08:47→13:06)
--- NOTE | 2017-02-18 14:42 | SOAPPROG ---
SOAP Progress Note Assessment/Plan: Assessment:Patient with schizophrenia remains disorganized, speaking in word salad. No known vomiting for several days. Continued somatic complaints. No safety issues. On reverse room lockout due to previous vomiting. He is asking that this be stopped because he denies being bulimic. Testosterone level is normal at 390. He continues to complain about his medications. He is not open to considering other medications. Plan: Will continue Abilify. Remain on reverse room lock out Awaiting court ordered medications. Remind peers to maintain good boundaries. 01/30/17 17:32 01/31/17 15:42 01/31/17 16:32 02/13/17 14:22 02/13/17 14:46 02/14/17 14:17 02/14/17 14:24 02/15/17 15:41 02/15/17 15:44 02/15/17 16:06 02/16/17 13:52 02/16/17 14:01 02/17/17 14:15 02/18/17 14:28 02/18/17 14:42 Subjective: He reports he took prn Zyprexa, and he thought he was going to . He believes the Zyprexa caused absent mindedness, lack of awareness, and easy frustration. He report some conflicts with nurse due to his irritability. He reports this lead to his being placed back on RTU, locked room, and phone restriction. He reports he tried to talk with the charge nurse and related his "occupational goals." He asked, "What am I supposed to act like." He felt nursing staff ostracized him. He allegedly got 2 snack and a drink, but he could have had three snacks and a drink. He alledgedly was not allowed to eat his won snacks. He felt staff was confrontational bout it, so he filed a grievance that included his concern he has developed cabin fever from being in here so long. he feels it is hard to participate in groups "academically." "I don't feel better." "I don't believe methylfolate lasts that long. 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 He reports he gained 130 pounds on Zyprexa, and he overdosed on it. He went to [facility] after this "overdose". He had actually been at a house republican and used crack cocaine, but he reports people thought he was acting drunk about 8 hours after the republican, so it wasn't the crack, it was the Zyprexa. He believes he is becoming hypersensitive becasue two female peers keep touching him. E. grabbed his neck and P. is being overly friendly, donte him, and walking to close to him. Objective: Vital Signs Temp Pulse Resp BP Pulse Ox 36.6 C 66 15 126/59 H 97 02/18/17 06:00 02/18/17 06:00 02/18/17 06:00 02/18/17 06:00 02/18/17 06:00 obese, male, sitting on a chair in the dining area. Good eye contact. Speech- RRR and tone. Mood- "Confused. Affect- Restricted. thought Process - Disorganized. Thought Content- No SI/HI. No AH/VH. Insight - Poor. Judgment - Poor. - Time Spent With Patient Time Spent With Patient: 25 - Pending Discharge Pending Discharge Within 24 Hours: No Pending Discharge Within 48 Hours: No ICD10 Worksheet Patient Problems: Problems Problem Status Onset Dehydration Acute Renal insufficiency Acute Vomiting Acute
[2017-02-18] MEDS: ARIPiprazole 10 MG TAB PO SCH (19:05)
[2017-02-19] MEDS: LEVOMEFOLATE PO SCH (08:05)
[2017-02-19] MEDS: ALGAL OIL PO SCH (08:05)
[2017-02-19] MEDS: CALCIUM CARBONATE 500 MG CHEWABLE TAB PO SCH ×3 (08:11→20:09)
[2017-02-19] MEDS: LORazepam 1 MG TAB PO PRN ×2 (10:54→20:04)
[2017-02-19] MEDS: MAGNESIUM HYDROXIDE 30 ML UDCUP PO PRN (13:00)
[2017-02-19] MEDS: MAG HYDROX/AL HYDROX/SIMETH 30 ML UDCUP PO PRN (13:01)
--- NOTE | 2017-02-19 18:07 | SOAPPROG ---
SOAP Progress Note Assessment/Plan: Assessment:Patient with schizophrenia remains disorganized, speaking in word salad. No known vomiting for several days. Continued somatic complaints. No safety issues. On reverse room lockout due to previous vomiting. He is asking that this be stopped because he denies being bulimic. Testosterone level is normal at 390. He continues to complain about his medications. He is not open to considering other medications. Plan: Will continue Abilify. Remain on reverse room lock out Awaiting court ordered medications. Remind peers to maintain good boundaries. 01/30/17 17:32 01/31/17 15:42 01/31/17 16:32 02/13/17 14:22 02/13/17 14:46 02/14/17 14:17 02/14/17 14:24 02/15/17 15:41 02/15/17 15:44 02/15/17 16:06 02/16/17 13:52 02/16/17 14:01 02/17/17 14:15 02/18/17 14:28 02/18/17 14:42 Subjective: "I don't know why people play games." He reports a peer read his journal when he was in the bathroom, and he feels staff observed it, and they knew it was his. Originally had a delusion with Dr. Dominique, and it just doesn't work. That benztropine is not [id number]. I walk around to much on [employer], gave "hematosperma," and I am not guilty of that crime. He reports Risperdal shots hurt his arm. he reports his brother was a speeder and he might have gone to the [employer]. He thinks his brother may be part of the [employer] service, but he also believes he may have been the speed trying to crash into the [employer]. He reports he is not being inappropriate when he breathes in and out. He states the air is dry, and he has some bloody mucus, EPS, and some ischemia. Objective: Vital Signs Temp Pulse Resp BP Pulse Ox 36.3 C 67 15 122/80 H 98 02/19/17 06:00 02/19/17 06:00 02/19/17 06:00 02/19/17 06:00 02/19/17 06:00 Obese, male, appropriately dressed. Breathing in and our heavily. Speech- Talkative, Word salad. Mood - "Somewhat higher than it was, less depressed." Affect- Euthymic. Thought Process- loose connections. Flight of ideas. Thought Content - No SI/HI/ No AH/VH. +Delusions. - Time Spent With Patient Time Spent With Patient: 25 - Pending Discharge Pending Discharge Within 24 Hours: No Pending Discharge Within 48 Hours: No ICD10 Worksheet Patient Problems: Problems Problem Status Onset Dehydration Acute Renal insufficiency Acute Vomiting Acute
[2017-02-19] MEDS: ARIPiprazole 10 MG TAB PO SCH (19:02)
[2017-02-20] MEDS: CALCIUM CARBONATE 500 MG CHEWABLE TAB PO SCH ×3 (08:22→19:07)
[2017-02-20] MEDS: ALGAL OIL PO SCH (08:22)
[2017-02-20] MEDS: LEVOMEFOLATE PO SCH (08:22)
[2017-02-20] MEDS: LORazepam 1 MG TAB PO PRN (13:57)
--- NOTE | 2017-02-20 16:58 | SOAPPROG ---
SOAP Progress Note Assessment/Plan: Assessment:Patient with schizophrenia remains disorganized, speaking in word salad. No known vomiting for several days. Continued somatic complaints. No safety issues. On reverse room lockout due to previous vomiting. He is asking that this be stopped because he denies being bulimic. Testosterone level is normal at 390. He continues to complain about his medications. He is not open to considering other medications. Plan: Will continue Abilify. Remain on reverse room lock out Awaiting court ordered medications. Remind peers to maintain good boundaries. 01/30/17 17:32 01/31/17 15:42 01/31/17 16:32 02/13/17 14:22 02/13/17 14:46 02/14/17 14:17 02/14/17 14:24 02/15/17 15:41 02/15/17 15:44 02/15/17 16:06 02/16/17 13:52 02/16/17 14:01 02/17/17 14:15 02/18/17 14:28 02/18/17 14:42 Subjective: He reports he is a little bit better than yesterday. He feels a little more stable re: conversations with staff. He is a little less depressed. He feels he would be sleeping a little more if he was not on room lockout. He would "nap after coffee because of the "cortisol. Benefits of medications- "a little bit. No entirely sure what to encourage." "Sometimes meds the wrong meds in the hospital, so I throw up a little piece at [facility]." He wants Zyprexa discontinued "because of the genes." He denied having SI or HI, but he did find a peer's international marketing specialist front of the television, coughing without covering his mouth, troubling. He reported he doesn't agree that less pain changes your mood, "but it obviously depend on your mood and your learning. I feel a little out of sunlight." He reports he is getting a little bit sweating, but his hygiene has improved. " I think I can make a promise to myself to wither slow down or get a tattoo." He reports he wants to take a vacation with his mother to [facility]. Objective: Vital Signs Temp Pulse Resp BP Pulse Ox 36.6 C 104 H 15 129/71 H 99 02/20/17 06:00 02/20/17 06:00 02/20/17 06:00 02/20/17 06:00 02/20/17 06:00 Obese male sitting in an office chair with his legs apart, forearms resting on legs, breathing in and out as if practicing some relaxation technique. Speech- talkative, word salad. Thought Process- flight of ideas, tangential. Thought Content - No SI/HI. No AH/VH. - Time Spent With Patient Time Spent With Patient: 35 - Pending Discharge Pending Discharge Within 24 Hours: No Pending Discharge Within 48 Hours: No ICD10 Worksheet Patient Problems: Problems Problem Status Onset Dehydration Acute Renal insufficiency Acute Vomiting Acute
[2017-02-20] MEDS: ARIPiprazole 10 MG TAB PO SCH (19:06)
[2017-02-21] MEDS: ALGAL OIL PO SCH (08:38)
[2017-02-21] MEDS: LEVOMEFOLATE PO SCH (08:38)
[2017-02-21] MEDS: CALCIUM CARBONATE 500 MG CHEWABLE TAB PO SCH ×3 (08:41→15:35)
[2017-02-21] MEDS: LORazepam 1 MG TAB PO PRN (15:32)
--- NOTE | 2017-02-21 16:21 | SOAPPROG ---
SOAP Progress Note Assessment/Plan: Assessment:Patient with schizophrenia remains disorganized, speaking in word salad. No known vomiting for several days. Continued somatic complaints. He did have an US that incidentally showed a liver lesion. It is unknown if his PCP had plans for f/u. On reverse room lockout due to previous vomiting. He is asking that this be stopped because he denies being bulimic. He continues to complain about his medications. He is not open to considering other medications. No current safety issues. Plan: Will continue Abilify. Remain on reverse room lock out Awaiting court ordered medications. Remind peers to maintain good boundaries. 01/30/17 17:32 01/31/17 15:42 01/31/17 16:32 02/13/17 14:22 02/13/17 14:46 02/14/17 14:17 02/14/17 14:24 02/15/17 15:41 02/15/17 15:44 02/15/17 16:06 02/16/17 13:52 02/16/17 14:01 02/17/17 14:15 02/18/17 14:28 02/18/17 14:42 02/21/17 16:12 Subjective: "I'm having a hard time filling out the menu." He reports a female peer is talking incessantly to him. He reports he can't have hot tea, but he has his own tea in his hair. He says he is really talking about pain. "It's pain, not hateful, not agitated." He reports feeling tired and wanting to lie down. Asked about the meeting with his mother, he reports being upset she wants him to stay here. "I threw up a lesion." He reports there was a pink lesion on his skin. He is trying to not swallow gum or eat a lot of honey. He reports being in so much pain, "but I want to start using wilkins when I leave." He understands this is bad for his psychosis,"but that's typically PTSD. I'm not a ." The wilkins are MJ, peyote, or other things. "I'm not an addict. I ' ve used crack accidentally and coke non-intentionally to breath." Objective: Vital Signs Temp Pulse Resp BP Pulse Ox 36.6 C 70 16 113/67 99 02/21/17 06:00 02/21/17 06:00 02/21/17 06:00 02/21/17 06:00 02/21/17 06:00 Speech- word salad. Mood- "concerned." Affect- Congruent, worried. Thought Process- flight of ideas, loose associations. Thought Content - No SI/HI. No AH/ VH. +delusional. - Time Spent With Patient Time Spent With Patient: 25 - Pending Discharge Pending Discharge Within 24 Hours: No Pending Discharge Within 48 Hours: No ICD10 Worksheet Patient Problems: Problems Problem Status Onset Dehydration Acute Renal insufficiency Acute Vomiting Acute
[2017-02-21] MEDS: MAG HYDROX/AL HYDROX/SIMETH 30 ML UDCUP PO PRN (16:37)
[2017-02-21] MEDS: ARIPiprazole 10 MG TAB PO SCH (20:15)
[2017-02-22] MEDS: ALGAL OIL PO SCH (08:03)
[2017-02-22] MEDS: LEVOMEFOLATE PO SCH (08:03)
[2017-02-22] MEDS: CALCIUM CARBONATE 500 MG CHEWABLE TAB PO SCH ×3 (08:04→22:34)
[2017-02-22] MEDS: LORazepam 1 MG TAB PO PRN ×2 (14:54→19:05)
--- NOTE | 2017-02-22 14:59 | SOAPPROG ---
SOAP Progress Note Assessment/Plan: Assessment: Plan: 01/27/17 18:24 Remains very disorganized. WIll titrate Abilify, monitor. 01/28/17 16:06 Slight improvement. [facility]. 01/29/17 15:33 Remains disorganized. More irritable/hostile today. CCM. 02/01/17 14:32 Better today. Will [facility], await hearing for COM. 02/03/17 12:07 Slow improvement. [facility]. 02/04/17 16:41 Pt has regressed today. Will [facility]. Await COM hearing. 02/05/17 12:54 Remains disorganized, delusional. Insight and judgment remain very poor. Will [facility]. Await hearing for COM. 02/08/17 14:48 Very disorganized, worse than I've seen him. Will [facility], await COM hearing. 02/09/17 17:54 Improved over yesterday though remains disorganized, paranoid. Clearly gravely disabled. 02/10/17 12:52 Remains paranoid, internally focused. I/J remains poor. I discussed possible Maintena and pt refuses. Await COM hearing. [facility]. 02/11/17 14:58 Trending positively over past two days. [facility]. 02/14/17 10:21 Continued slow improvement. [facility]. 02/22/17 14:59 No real change. Pt refuses any med changes. [facility]. Await hearing for COM. Subjective: Pt seen, discussed with staff. Reports feeling "just fine." Smiling and interactive, asks when he can leave. Staff notes that he remains volatile and irritable. RN notes that he looks more depressed and "sad" over the weekend. Pt notes continued "liver pain" and mother brings in EOB from when he had an abdominal US. She believe this is proof that pt has "a lesion on his liver." Pt himself does not believe this stating, "I coughed it up." Mother demands "full medical workup" of liver lesion. Objective: Vital Signs Temp Pulse Resp BP Pulse Ox 36.6 C 77 14 122/68 H 99 02/22/17 04:49 02/22/17 04:49 02/22/17 04:49 02/22/17 04:49 02/22/17 04:49 MSE: Calm, coop. Affect is blunted, odd, hebephrenic looking smile. Mood is "good." TP disorganized. TC reveals paranoid and grandiose themes. - Time Spent With Patient Time Spent With Patient: 15" - Pending Discharge Pending Discharge Within 24 Hours: No Pending Discharge Within 48 Hours: No ICD10 Worksheet Patient Problems: Problems Problem Status Onset Dehydration Acute Renal insufficiency Acute Vomiting Acute
[2017-02-22] MEDS: NICOTINE POLACRILEX 2 MG GUM B PRN (17:58)
[2017-02-22] MEDS: ARIPiprazole 10 MG TAB PO SCH (23:39)
[2017-02-23] MEDS: LEVOMEFOLATE PO SCH (07:56)
[2017-02-23] MEDS: ALGAL OIL PO SCH (07:56)
[2017-02-23] MEDS: LORazepam 1 MG TAB PO PRN ×3 (11:33→17:35)
[2017-02-23] MEDS: CALCIUM CARBONATE 500 MG CHEWABLE TAB PO SCH ×3 (12:00→22:09)
[2017-02-23] MEDS ORDERED: ARIPiprazole 10 MG TAB PO ONE (13:00)
--- NOTE | 2017-02-23 17:22 | SOAPPROG ---
SOAP Progress Note Assessment/Plan: Assessment: Plan: 01/27/17 18:24 Remains very disorganized. WIll titrate Abilify, monitor. 01/28/17 16:06 Slight improvement. CCM. 01/29/17 15:33 Remains disorganized. More irritable/hostile today. CCM. 02/01/17 14:32 Better today. Will [facility], await hearing for COM. 02/03/17 12:07 Slow improvement. [facility]. 02/04/17 16:41 Pt has regressed today. Will [facility]. Await COM hearing. 02/05/17 12:54 Remains disorganized, delusional. Insight and judgment remain very poor. Will [facility]. Await hearing for COM. 02/08/17 14:48 Very disorganized, worse than I've seen him. Will [facility], await COM hearing. 02/09/17 17:54 Improved over yesterday though remains disorganized, paranoid. Clearly gravely disabled. 02/10/17 12:52 Remains paranoid, internally focused. I/J remains poor. I discussed possible Maintena and pt refuses. Await COM hearing. [facility]. 02/11/17 14:58 Trending positively over past two days. [facility]. 02/14/17 10:21 Continued slow improvement. [facility]. 02/22/17 14:59 No real change. Pt refuses any med changes. [facility]. Await hearing for COM. 02/23/17 17:28 Remains psychotic. Now refusing meds due to paranoid delusions and overall resistance to treatment. Adamantly against long-acting injectable. Will [facility], await COM hearing. Subjective: Pt seen, discussed with staff. Reports feeling "just fine." Friendly and interactive at first, but hostile later when discussing legal issues. He is now denying he has Schizophrenia and states he only has ADHD. He also states his psychotic sx's are due to "cold turkey from my testosterone" and "drugs." He refused Abilify last night "because it's not a treatment for ADHD." He also states he cannot take it at night because it interacts with Brandon. I assured him it did not and then moved it to morning. He is angry that I continue to recommend Abilify Maintenna and states, "What if just stop taking it. Then what are you going to do?" States he doesn't want testosterone b/c he has to go outside for it to work while he does [place] [employer]. Remains angry that he is on room restriction, denying he has ever purged. 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 Staff notes that he will predictably self-induce vomiting with his toothbrush if allowed to go to his room after meals. Objective: Vital Signs Temp Pulse Resp BP Pulse Ox 36.7 C 88 12 119/65 95 02/23/17 06:00 02/23/17 06:00 02/23/17 06:00 02/23/17 06:00 02/23/17 06:00 MSE: Calm and then agitated. Affect is labile, angry at times. Mood is "not good." TP disorganized. TC reveals paranoid, grandiose and bizarre delusions. - Time Spent With Patient Time Spent With Patient: 25" - Pending Discharge Pending Discharge Within 24 Hours: No Pending Discharge Within 48 Hours: No ICD10 Worksheet Patient Problems: Problems Problem Status Onset Dehydration Acute Renal insufficiency Acute Vomiting Acute
[2017-02-24] MEDS: LORazepam 1 MG TAB PO PRN ×2 (06:59→13:15)
[2017-02-24] MEDS: CALCIUM CARBONATE 500 MG CHEWABLE TAB PO SCH ×3 (09:06→22:21)
[2017-02-24] MEDS: LEVOMEFOLATE PO SCH (09:08)
[2017-02-24] MEDS: ALGAL OIL PO SCH (09:08)
[2017-02-24] MEDS: ARIPiprazole 10 MG TAB PO SCH (09:37)
[2017-02-24] MEDS: NICOTINE POLACRILEX 2 MG GUM B PRN (09:41)
[2017-02-24] MEDS: guaiFENesin 600 MG TAB.ER PO PRN (13:15)
--- NOTE | 2017-02-24 19:03 | SOAPPROG ---
SOAP Progress Note Assessment/Plan: Assessment: Plan: 01/27/17 18:24 Remains very disorganized. WIll titrate Abilify, monitor. 01/28/17 16:06 Slight improvement. CCM. 01/29/17 15:33 Remains disorganized. More irritable/hostile today. CCM. 02/01/17 14:32 Better today. Will [facility], await hearing for COM. 02/03/17 12:07 Slow improvement. [facility]. 02/04/17 16:41 Pt has regressed today. Will [facility]. Await COM hearing. 02/05/17 12:54 Remains disorganized, delusional. Insight and judgment remain very poor. Will [facility]. Await hearing for COM. 02/08/17 14:48 Very disorganized, worse than I've seen him. Will [facility], await COM hearing. 02/09/17 17:54 Improved over yesterday though remains disorganized, paranoid. Clearly gravely disabled. 02/10/17 12:52 Remains paranoid, internally focused. I/J remains poor. I discussed possible Maintena and pt refuses. Await COM hearing. [facility]. 02/11/17 14:58 Trending positively over past two days. [facility]. 02/14/17 10:21 Continued slow improvement. [facility]. 02/22/17 14:59 No real change. Pt refuses any med changes. [facility]. Await hearing for COM. 02/23/17 17:28 Remains psychotic. Now refusing meds due to paranoid delusions and overall resistance to treatment. Adamantly against long-acting injectable. Will [facility], await COM hearing. 02/24/17 19:02 Remarkable insight today. Will [facility], inform pt's assistant district attorney that he is willing to stipulate to meds. Subjective: Pt seen, discussed with staff. Cooperative and pleasant with me, states he is willing to take Abilify Sustenna shot. States, "I'm willing to stip. I don't mind taking it." He then apologizes for "being rude yesterday". I discussed with him again that all of my actions and those of MHP's are directed at helping him. He acknowledges this for the first time as well. Objective: Vital Signs Temp Pulse Resp BP Pulse Ox 36.7 C 60 16 106/53 L 98 02/24/17 06:00 02/24/17 06:00 02/24/17 06:00 02/24/17 06:00 02/24/17 06:00 - Time Spent With Patient Time Spent With Patient: 25" - Pending Discharge Pending Discharge Within 24 Hours: No Pending Discharge Within 48 Hours: No ICD10 Worksheet Patient Problems: Problems Problem Status Onset Dehydration Acute Renal insufficiency Acute Vomiting Acute
[2017-02-25] MEDS: guaiFENesin 600 MG TAB.ER PO PRN ×3 (02:07→21:02)
[2017-02-25] MEDS: LORazepam 1 MG TAB PO PRN ×2 (02:28→08:55)
[2017-02-25] MEDS: LEVOMEFOLATE PO SCH (08:14)
[2017-02-25] MEDS: ALGAL OIL PO SCH (08:14)
[2017-02-25] MEDS: ARIPiprazole 10 MG TAB PO SCH (08:41)
[2017-02-25] MEDS: CALCIUM CARBONATE 500 MG CHEWABLE TAB PO SCH ×2 (11:11→18:59)
--- NOTE | 2017-02-25 15:43 | SOAPPROG ---
SOAP Progress Note Assessment/Plan: Assessment: 26yo with psychotic d/o and 18 past psych admissions, most recently 3 mo ago to [facility], has been noncompliant with meds Rexulti and uptitration, becoming increasingly delusional. Was initially admitted for IV hydration after eval in Urgent Care 01/22 where mother took him after 2 days of N/V and abd pain. Pt had delusional thoughts around his N/V c/o western medicine making him more ill, being poisoned by neighbors, and needing various herbs to relieve blockages. Was noted to be self-inducing vomiting, and was hyperventilating to send breath to "blocked mesentery". DX: SZP, THC use d/o 02/25/17 15:32 complains of feeling very flat and hypersensitive sexually due to medications. frustrated that he has to take meds, but willing to do so (Janell JASSO) if it helps him get d/cd. also concerned about being off Testosterone. usually takes 150mg q2wk. had level checked [id number]. wants recheck to ensure not dropping. helps him maintain mental stamina to remain calm, and maintain his muscle mass. regarding s/e, perhaps it causes him "to be acutely argumentative in conjunction with THC depending on the strain" plans to continue acupuncture, and mental health dx? "absolutely at this point" no problem with THC however, prefers wilkins/bud as opposed to the concentrate feels he just hasn't been getting enough sun for vit D. asks for cogentin. examined, no cogwheeling noted. MSE: casually dressed, has gained some weight since 2 wk ago it seems, cooperative, good eye contact, engaging in speech, articulate, affect is somewhat restricted. mood "I feel more stable" overall. thoughts more linear and goal-directed, still with some somatic concerns. did not appear responding to internal stimuli. denied current SI and no HI. denied any AH/VH. i/j limited. cognition intact. PLAN: d/c zyprexa. pt c/o weight gain, and hasn't been using recently labs in AM, fasting lipids, basic chem panel, and prolactin (pt with concerns about his level and has hx of elevated PRL per his report) cont prn Ativan no cogentin indicated. declines offer of prn hydroxyzine "my brother took it and it was bad for him", and no propranolol "b/c my grandfather took that and it was bad". Agreeable to start Abilify Maintena 400mg IM today and will decr Abilify po to 20mg qam for 2wk and monitor, since c/o s/e to 30mg. Cont on STC. Stated he t/w his atty and stipulated. Will still await official c.o. for records, but pt agrees to start. cont to educate on adverse effects of THC and recommendation to abstain no Testosterone IM indicated at this time. Objective: Vital Signs Temp Pulse Resp BP Pulse Ox 36.4 C 81 15 132/77 H 98 02/25/17 02:13 02/25/17 02:13 02/25/17 02:13 02/25/17 02:13 02/25/17 02:13 Medications Generic Name Dose Route Start Last Admin Trade Name Freq PRN Reason Stop Dose Admin Guaifenesin 600 mg 02/24/17 11:45 02/25/17 12:25 Mucinex PO 08/23/17 11:59 600 mg BID PRN sinus congestion Nicotine Polacrilex 2 mg 01/23/17 21:45 02/24/17 09:41 Nicorette B 07/22/17 21:44 2 mg Q1HR PRN Nicotine Withdrawal Miscellaneous Medication 0 each 01/27/17 09:00 02/25/17 08:14 Levomefolate/Algal Oil [Deplin-Algal Oil 15 Mg Capsule] PO 07/26/17 08:59 15 mg DAILY AJ Calcium Carbonate 500 mg 02/16/17 16:00 02/25/17 11:11 Tums PO 08/15/17 15:59 Not Given TID AJ Aripiprazole 30 mg 02/24/17 09:00 02/25/17 08:41 Abilify PO 08/23/17 08:59 30 mg DAILY AJ Lorazepam 1 - 2 mg 01/23/17 21:45 02/25/17 08:55 Ativan PO 07/22/17 21:44 1 mg Q4 PRN ANXIETY Magnesium Hydroxide 30 ml 01/23/17 21:45 02/19/17 13:00 Milk Of Magnesia PO 07/22/17 21:44 30 ml DAILY PRN Constipation Olanzapine 10 mg 01/28/17 21:26 02/17/17 19:52 Zyprexa Zydis PO 07/27/17 21:25 10 mg Q4 PRN AGITATION - Time Spent With Patient Time Spent With Patient: 45min - Pending Discharge Pending Discharge Within 24 Hours: No Pending Discharge Within 48 Hours: No ICD10 Worksheet Patient Problems: Problems Problem Status Onset Dehydration Acute Renal insufficiency Acute Vomiting Acute
[2017-02-25] MEDS ORDERED: CALCIUM CARBONATE 500 MG CHEWABLE TAB PO PRN (16:10)
[2017-02-25] MEDS ORDERED: ARIPIPRAZOLE (ABILIFY MAINTENA) 400 MG VIAL IM ONE (16:12)
[2017-02-25] MEDS: NICOTINE POLACRILEX 2 MG GUM B PRN (19:03)
[2017-02-26] MEDS: guaiFENesin 600 MG TAB.ER PO PRN (03:35)
[2017-02-26] MEDS: LEVOMEFOLATE PO SCH (08:47)
[2017-02-26] MEDS: ALGAL OIL PO SCH (08:47)
[2017-02-26] MEDS ORDERED: ARIPiprazole 10 MG TAB PO SCH (09:00)
[2017-02-26 10:13] LABS: ANION GAP 12 mEq/L (8-16); CALCIUM 9.7 mg/dL (8.5-10.4); CARBON DIOXIDE 25 mEq/l (22-31); CHLORIDE 106 mEq/L (97-110); CHOLESTEROL 171 mg/dL (140-200); CHOLESTEROL/HDL RATIO 3.56 RATIO (1.00-4.97); CREATININE 0.9 mg/dL (0.7-1.3); GLOMERULAR FILTRATION RATE > 60; GLUCOSE 68 mg/dL (70-100); HIGH DENSITY LIPOPROTEIN 48 mg/dL (40-70); LOW DENSITY LIPOPROTEIN 101 mg/dL (60-100); NON-HIGH DENSITY LIPOPROTEIN 123 mg/dL (90-129); POTASSIUM 4.4 mEq/L (3.5-5.2); SODIUM 143 mEq/L (134-144); TRIGLYCERIDE 113 mg/dL (40-150); VERY LOW DENSITY LIPOPROTEINS 22 mg/dL (8-25)
[2017-02-26 10:29] LABS: PROLACTIN 6.4 ng/mL (3.7-17.9)
[2017-02-26] MEDS ORDERED: ARIPiprazole 10 MG TAB PO ONE (13:30)
--- NOTE | 2017-02-26 13:40 | SOAPPROG ---
SOAP Progress Note Assessment/Plan: Assessment: 26yo with psychotic d/o and 18 past psych admissions, most recently 3 mo ago to [facility], has been noncompliant with meds Rexulti and uptitration, becoming increasingly delusional. Was initially admitted for IV hydration after eval in Urgent Care 01/22 where mother took him after 2 days of N/V and abd pain. Pt had delusional thoughts around his N/V c/o western medicine making him more ill, being poisoned by neighbors, and needing various herbs to relieve blockages. Was noted to be self-inducing vomiting, and was hyperventilating to send breath to "blocked mesentery". 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 frustrated that he has to take meds, but willing to do so (Janell JASSO) if it helps him get d/cd. also concerned about being off Testosterone. usually takes 150mg q2wk. had level checked 02/1526=776. wants recheck to ensure not dropping. helps him maintain mental stamina to remain calm, and maintain his muscle mass. regarding s/e, perhaps it causes him "to be acutely argumentative in conjunction with THC depending on the strain" plans to continue acupuncture, and mental health dx? "absolutely at this point" no problem with THC however, prefers wilkins/bud as opposed to the concentrate feels he just hasn't been getting enough sun for vit D. asks for cogentin. examined, no cogwheeling noted. MSE: casually dressed, has gained some weight since 2 wk ago it seems, cooperative, good eye contact, engaging in speech, articulate, affect is somewhat restricted. mood "I feel more stable" overall. thoughts more linear and goal-directed, still with some somatic concerns. did not appear responding to internal stimuli. denied current SI and no HI. denied any AH/VH. i/j limited. cognition intact. PLAN: d/c zyprexa. pt c/o weight gain, and hasn't been using recently labs in AM, fasting lipids, basic chem panel, and prolactin (pt with concerns about his level and has hx of elevated PRL per his report) cont prn Ativan no cogentin indicated. declines offer of prn hydroxyzine "my brother took it and it was bad for him", and no propranolol "b/c my grandfather took that and it was bad". Agreeable to start Abilify Maintena 400mg IM today and will decr Abilify po to 20mg qam for 2wk and monitor, since c/o s/e to 30mg. Cont on STC. Stated he t/w his atty and stipulated. Will still await official c.o. for records, but pt agrees to start. cont to educate on adverse effects of THC and recommendation to abstain no Testosterone IM indicated at this time. 02/26/17 13:28 pt reports a bad headache this AM, difficult to qualify, states pressure but also pounding sensation, attributes it to a "sinus headache" and having congestion, adds that he needed tubes in his ears in the past when had sinus problems, and reports dark mucous. C/o "my hair is falling out, I found some on my plate...I don't know if this is a game or a bad joke (referring to current hospitalization). Then talked of hypersensitivity to tobacco not being an issue and eyes being droopy, not caring about the world's issues or schizophrenia. MSE: good eye contact, calm, cooperative, nml rate/vol speech, Mood "not that great today" b/c H/A, affect restricted, thoughts seem more illogical and disorganized today. did not appear responding to internal stimuli. denied any si /hi. oriented to person/place, February, Wednesday, and not sure why he is in the hospital. VS stable. check BID. denied any fever or cough, no vision changes, no GI distress although wonders whether he tolerates the coating on the Deplin capsule PLAN: holding off on Abilify Maintena until unit receives signed court-ordered stipulation. co med hearing scheduled for 03/04 if no stipulation, left msg again with pt atty Continue Abilify 30mg po QD. only had 20mg this AM, not sure if this contributing to his incr thought disorganization today. Labs unremarkable, will add LFTs consulted Dr. Gutiérrez about patient's reported sinus headache. appreciate consult feedback that no acute issues present, seems pt with predisposition to migraine-type h/a and no c/o h/a at time of eval by hospitalist. Objective: Vital Signs Temp Pulse Resp BP Pulse Ox 36.4 C 83 16 123/67 H 95 02/25/17 02:13 02/26/17 04:05 02/26/17 04:05 02/26/17 04:05 02/26/17 04:05 Laboratory Results 02/25/17 06:25 - Time Spent With Patient Time Spent With Patient: 35 min - Pending Discharge Pending Discharge Within 24 Hours: No Pending Discharge Within 48 Hours: No ICD10 Worksheet Patient Problems: Problems Problem Status Onset Dehydration Acute Renal insufficiency Acute Vomiting Acute
--- NOTE | 2017-02-26 15:47 | SOAPPROG ---
SOAP Progress Note Assessment/Plan: Assessment: LAW, possibly migrainous though does not appear to be long-lasting and no nausea. Advise acetaminophen PRN, which has been ordered. Possible sinusitis based on history but exam not c/w. Observe for evolution of symptoms. 02/26/17 15:48 Subjective: ATSP re LAW. Woke with it the morning. Describes pressure L frontal, pounding. No nausea. Better this afternoon. Also reports mucous from L nostril, thick , yellow, with some blood. Reports h/o HAs, sometimes similar to current, sometimes lasting all day and bad enough to interfere with normal activities, other times milder. No vision changes, weakness, numbness, tingling, difficulty swallowing, balance problems. Objective: Vital Signs Temp Pulse Resp BP Pulse Ox 36.4 C 83 16 123/67 H 95 02/25/17 02:13 02/26/17 04:05 02/26/17 04:05 02/26/17 04:05 02/26/17 04:05 Laboratory Results 02/25/17 06:25 Physical Exam - Physical Exam General Appearance: WD/WN, alert, no apparent distress EENT: PERRL/EOMI, pharynx normal, other (no post-OP mucous. No sinus tenderness.), No purulent nasal drainage, No rhinorrhea, No pharyngeal erythema , No tonsillar exudate Neck: non-tender, full range of motion, No lymphadenopathy (R), No lymphadenopathy (L) Neuro/Psych: no motor/sensory deficits, alert, normal mood/affect, No abnormal gait ICD10 Worksheet Patient Problems: Problems Problem Status Onset Dehydration Acute Renal insufficiency Acute Vomiting Acute
[2017-02-26 16:40] LABS: ALANINE AMINOTRANSFERASE 41 IU/L (21-72); ALBUMIN 4.6 g/dL (3.5-5.0); ALKALINE PHOSPHATASE 77 IU/L (38-126); ASPARTATE AMINOTRANSFERASE 29 IU/L (17-59); BILIRUBIN,TOTAL 0.5 mg/dL (0.1-1.4); BILIRUBIN-CONJUGATED 0.4 mg/dL (0.0-0.5); BILIRUBIN-UNCONJUGATED 0.1 mg/dL (0.0-1.1)
[2017-02-26] MEDS: LORazepam 1 MG TAB PO PRN (21:04)
[2017-02-27] MEDS: LEVOMEFOLATE PO SCH (05:52)
[2017-02-27] MEDS: ALGAL OIL PO SCH (05:52)
[2017-02-27] MEDS: ARIPiprazole 10 MG TAB PO SCH (08:32)
--- NOTE | 2017-02-27 11:27 | SOAPPROG ---
SOAP Progress Note Assessment/Plan: Assessment: 26yo with psychotic d/o and 18 past psych admissions, most recently 3 mo ago to [facility], has been noncompliant with meds Rexulti and uptitration, becoming increasingly delusional. Was initially admitted for IV hydration after eval in Urgent Care 01/22 where mother took him after 2 days of N/V and abd pain. Pt had delusional thoughts around his N/V c/o western medicine making him more ill, being poisoned by neighbors, and needing various herbs to relieve blockages. Was noted to be self-inducing vomiting, and was hyperventilating to send breath to "blocked mesentery". 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 frustrated that he has to take meds, but willing to do so (Janell JASSO) if it helps him get d/cd. also concerned about being off Testosterone. usually takes 150mg q2wk. had level checked 02/1560=745. wants recheck to ensure not dropping. helps him maintain mental stamina to remain calm, and maintain his muscle mass. regarding s/e, perhaps it causes him "to be acutely argumentative in conjunction with THC depending on the strain" plans to continue acupuncture, and mental health dx? "absolutely at this point" no problem with THC however, prefers wilkins/bud as opposed to the concentrate feels he just hasn't been getting enough sun for vit D. asks for cogentin. examined, no cogwheeling noted. MSE: casually dressed, has gained some weight since 2 wk ago it seems, cooperative, good eye contact, engaging in speech, articulate, affect is somewhat restricted. mood "I feel more stable" overall. thoughts more linear and goal-directed, still with some somatic concerns. did not appear responding to internal stimuli. denied current SI and no HI. denied any AH/VH. i/j limited. cognition intact. PLAN: d/c zyprexa. pt c/o weight gain, and hasn't been using recently labs in AM, fasting lipids, basic chem panel, and prolactin (pt with concerns about his level and has hx of elevated PRL per his report) cont prn Ativan no cogentin indicated. declines offer of prn hydroxyzine "my brother took it and it was bad for him", and no propranolol "b/c my grandfather took that and it was bad". Agreeable to start Abilify Maintena 400mg IM today and will decr Abilify po to 20mg qam for 2wk and monitor, since c/o s/e to 30mg. Cont on STC. Stated he t/w his atty and stipulated. Will still await official c.o. for records, but pt agrees to start. cont to educate on adverse effects of THC and recommendation to abstain no Testosterone IM indicated at this time. 02/26/17 13:28 pt reports a bad headache this AM, difficult to qualify, states pressure but also pounding sensation, attributes it to a "sinus headache" and having congestion, adds that he needed tubes in his ears in the past when had sinus problems, and reports dark mucous. C/o "my hair is falling out, I found some on my plate...I don't know if this is a game or a bad joke (referring to current hospitalization). Then talked of hypersensitivity to tobacco not being an issue and eyes being droopy, not caring about the world's issues or schizophrenia. MSE: good eye contact, calm, cooperative, nml rate/vol speech, Mood "not that great today" b/c H/A, affect restricted, thoughts seem more illogical and disorganized today. did not appear responding to internal stimuli. denied any si /hi. oriented to person/place, February, Wednesday, and not sure why he is in the hospital. VS stable. check BID. denied any fever or cough, no vision changes, no GI distress although wonders whether he tolerates the coating on the Deplin capsule PLAN: holding off on Abilify Maintena until unit receives signed court-ordered stipulation. co med hearing scheduled for 03/04 if no stipulation, left msg again with pt atty Continue Abilify 30mg po QD. only had 20mg this AM, not sure if this contributing to his incr thought disorganization today. Labs unremarkable, will add LFTs consulted Dr. Gutiérrez about patient's reported sinus headache- appreciate consult. no acute concerns. seems has migraine-type h/a, presently resolved 02/27/17 16:14 Per staff, slept 8 hrs. No acute issues. Pt feeling sedated in AM, thinks b/c Abilify. Met with atty this AM and chose a few meds on c.o. for stipulation, instead of only Abilify. Would like Abilify changed to HS, and keep Deplin in AM. MSE: cooperative, mood "fine" and tired of being in hospital, affect controlled/ restricted range, thoughts linear and reality-based, more organized and logical. speech nml rate/vol. denied ah/vh or any si/hi. i/j fair. cogn intact. PLAN: I t/w patient's atty before she left and reviewed patient med choices he circled to keep on court-order for stipulation. Abilify, Latuda, Geodon, Zyprexa in all forms. Okay with this since this allows options with IM backups. Hopefully stipulation will be signed by forming machine operator tomorrow and pt can receive IM Abilify. Abilify change to 30mg qhs at pt request. no evidence for cheeking or noncompliance or self-induced vomiting. Objective: Vital Signs Temp Pulse Resp BP Pulse Ox 36.7 C 74 16 131/74 H 96 02/27/17 06:00 02/27/17 06:00 02/27/17 06:00 02/27/17 06:00 02/27/17 06:00 Laboratory Results 02/25/17 06:25 - Time Spent With Patient Time Spent With Patient: 25min - Pending Discharge Pending Discharge Within 24 Hours: No Pending Discharge Within 48 Hours: No ICD10 Worksheet Patient Problems: Problems Problem Status Onset Dehydration Acute Renal insufficiency Acute Vomiting Acute
[2017-02-27] MEDS: LORazepam 1 MG TAB PO PRN (11:50)
[2017-02-27] MEDS: guaiFENesin 600 MG TAB.ER PO PRN (15:53)
[2017-02-28] MEDS: guaiFENesin 600 MG TAB.ER PO PRN ×2 (01:12→16:00)
[2017-02-28] MEDS: LORazepam 1 MG TAB PO PRN ×2 (01:14→09:38)
[2017-02-28] MEDS: ALGAL OIL PO SCH (07:43)
[2017-02-28] MEDS: LEVOMEFOLATE PO SCH (07:43)
[2017-02-28] MEDS: ARIPiprazole 10 MG TAB PO SCH ×2 (12:15→21:27)
[2017-02-28] MEDS: NICOTINE POLACRILEX 2 MG GUM B PRN (12:25)
--- NOTE | 2017-02-28 13:09 | SOAPPROG ---
SOAP Progress Note Assessment/Plan: Assessment: 26yo with psychotic d/o and 18 past psych admissions, most recently 3 mo ago to [facility], has been noncompliant with meds Rexulti and uptitration, becoming increasingly delusional. Was initially admitted for IV hydration after eval in Urgent Care 01/22 where mother took him after 2 days of N/V and abd pain. Pt had delusional thoughts around his N/V c/o western medicine making him more ill, being poisoned by neighbors, and needing various herbs to relieve blockages. Was noted to be self-inducing vomiting, and was hyperventilating to send breath to "blocked mesentery". 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 frustrated that he has to take meds, but willing to do so (Janell JASSO) if it helps him get d/cd. also concerned about being off Testosterone. usually takes 150mg q2wk. had level checked 02/1507=446. wants recheck to ensure not dropping. helps him maintain mental stamina to remain calm, and maintain his muscle mass. regarding s/e, perhaps it causes him "to be acutely argumentative in conjunction with THC depending on the strain" plans to continue acupuncture, and mental health dx? "absolutely at this point" no problem with THC however, prefers wilkins/bud as opposed to the concentrate feels he just hasn't been getting enough sun for vit D. asks for cogentin. examined, no cogwheeling noted. MSE: casually dressed, has gained some weight since 2 wk ago it seems, cooperative, good eye contact, engaging in speech, articulate, affect is somewhat restricted. mood "I feel more stable" overall. thoughts more linear and goal-directed, still with some somatic concerns. did not appear responding to internal stimuli. denied current SI and no HI. denied any AH/VH. i/j limited. cognition intact. PLAN: d/c zyprexa. pt c/o weight gain, and hasn't been using recently labs in AM, fasting lipids, basic chem panel, and prolactin (pt with concerns about his level and has hx of elevated PRL per his report) cont prn Ativan no cogentin indicated. declines offer of prn hydroxyzine "my brother took it and it was bad for him", and no propranolol "b/c my grandfather took that and it was bad". Agreeable to start Abilify Maintena 400mg IM today and will decr Abilify po to 20mg qam for 2wk and monitor, since c/o s/e to 30mg. Cont on STC. Stated he t/w his atty and stipulated. Will still await official c.o. for records, but pt agrees to start. cont to educate on adverse effects of THC and recommendation to abstain no Testosterone IM indicated at this time. 02/26/17 13:28 pt reports a bad headache this AM, difficult to qualify, states pressure but also pounding sensation, attributes it to a "sinus headache" and having congestion, adds that he needed tubes in his ears in the past when had sinus problems, and reports dark mucous. C/o "my hair is falling out, I found some on my plate...I don't know if this is a game or a bad joke (referring to current hospitalization). Then talked of hypersensitivity to tobacco not being an issue and eyes being droopy, not caring about the world's issues or schizophrenia. MSE: good eye contact, calm, cooperative, nml rate/vol speech, Mood "not that great today" b/c H/A, affect restricted, thoughts seem more illogical and disorganized today. did not appear responding to internal stimuli. denied any si /hi. oriented to person/place, February, Wednesday, and not sure why he is in the hospital. VS stable. check BID. denied any fever or cough, no vision changes, no GI distress although wonders whether he tolerates the coating on the Deplin capsule PLAN: holding off on Abilify Maintena until unit receives signed court-ordered stipulation. co med hearing scheduled for 03/04 if no stipulation, left msg again with pt atty Continue Abilify 30mg po QD. only had 20mg this AM, not sure if this contributing to his incr thought disorganization today. Labs unremarkable, will add LFTs consulted Dr. Gutiérrez about patient's reported sinus headache. appreciate consult. no acute concerns. seems has migraine-type h/a, presently resolved 02/27/17 16:14 Per staff, slept 8 hrs. No acute issues. Pt feeling sedated in AM, thinks b/c Abilify. Met with atty this AM and chose a few meds on c.o. for stipulation, instead of only Abilify. Would like Abilify changed to HS, and keep Deplin in AM. MSE: cooperative, mood "fine" and tired of being in hospital, affect controlled/ restricted range, thoughts linear and reality-based, more organized and logical. speech nml rate/vol. denied ah/vh or any si/hi. i/j fair. cogn intact. PLAN: I t/w patient's atty before she left and reviewed patient med choices he circled to keep on court-order for stipulation. Abilify, Latuda, Geodon, Zyprexa in all forms. Okay with this since this allows options with IM backups. Hopefully stipulation will be signed by blasting contract miner tomorrow and pt can receive IM Abilify. Abilify change to 30mg qhs at pt request. no evidence for cheeking or noncompliance or self-induced vomiting. 02/28/17 15:00 Slept 8hr. No acute concerns. Mother visited on unit today. Admits patient doing much better, appears much more psychiatrically stable. Pt ready for d/c, he feels, just waiting on IM. Hoping for AG privs. Getting bored of being inpatient. No physical complaints, and denies s/e to meds. No akathisia. No EPS. MSE: cooperative, good eye contact, nml speech, engaging, mood "pretty good", affect fairly euthymic, thoughts organized and linear, denied ah/vh or si/hi. i/ j fair. cogn intact. PLAN: Continue current meds. Changing Abilify to HS starting tonight, at pt request, b /c pt felt it is sedating. Awaiting signed stipulation for c.o. meds. Objective: Vital Signs Temp Pulse Resp BP Pulse Ox 36.6 C 94 14 120/65 97 02/28/17 06:00 02/28/17 06:00 02/28/17 06:00 02/28/17 06:00 02/28/17 06:00 Laboratory Results 02/25/17 06:25 - Time Spent With Patient Time Spent With Patient: 15 min - Pending Discharge Pending Discharge Within 24 Hours: No Pending Discharge Within 48 Hours: No ICD10 Worksheet Patient Problems: Problems Problem Status Onset Dehydration Acute Renal insufficiency Acute Vomiting Acute
[2017-03-01] MEDS: LEVOMEFOLATE PO SCH (07:57)
[2017-03-01] MEDS: ALGAL OIL PO SCH (07:57)
--- NOTE | 2017-03-01 19:24 | SOAPPROG ---
SOAP Progress Note Assessment/Plan: Assessment: Plan: 01/27/17 18:24 Remains very disorganized. WIll titrate Abilify, monitor. 01/28/17 16:06 Slight improvement. CCM. 01/29/17 15:33 Remains disorganized. More irritable/hostile today. CCM. 02/01/17 14:32 Better today. Will [facility], await hearing for COM. 02/03/17 12:07 Slow improvement. [facility]. 02/04/17 16:41 Pt has regressed today. Will [facility]. Await COM hearing. 02/05/17 12:54 Remains disorganized, delusional. Insight and judgment remain very poor. Will [facility]. Await hearing for COM. 02/08/17 14:48 Very disorganized, worse than I've seen him. Will [facility], await COM hearing. 02/09/17 17:54 Improved over yesterday though remains disorganized, paranoid. Clearly gravely disabled. 02/10/17 12:52 Remains paranoid, internally focused. I/J remains poor. I discussed possible Maintena and pt refuses. Await COM hearing. [facility]. 02/11/17 14:58 Trending positively over past two days. [facility]. 02/14/17 10:21 Continued slow improvement. [facility]. 02/22/17 14:59 No real change. Pt refuses any med changes. [facility]. Await hearing for COM. 02/23/17 17:28 Remains psychotic. Now refusing meds due to paranoid delusions and overall resistance to treatment. Adamantly against long-acting injectable. Will [facility], await COM hearing. 02/24/17 19:02 Remarkable insight today. Will [facility], inform pt's deputy prosecuting attorney that he is willing to stipulate to meds. 03/01/17 19:24 Much improved overall. Await Maintena. Need family meeting for d/c. Subjective: Pt seen, discussed with staff, chart reviewed. Upbeat and pleasant with me. States he is ready to take the Maintena. Frustrated that the court order has not come through. I emailed the court who tells me that it is ready. Will administer the shot when this comes through. Objective: Vital Signs Temp Pulse Resp BP Pulse Ox 36.6 C 82 14 107/56 L 98 03/01/17 06:00 03/01/17 06:00 03/01/17 06:00 03/01/17 06:00 03/01/17 06:00 Laboratory Results 02/25/17 06:25 MSE: Well-groomed, coop. Affect is blunted, odd, but stable. Mood is "good." TP circumstantial, but better organized at times. Able to appropriately discuss his care. TC reveals grandiose and paranoid thoughtrs. - Time Spent With Patient Time Spent With Patient: 25" ICD10 Worksheet Patient Problems: Problems Problem Status Onset Dehydration Acute Renal insufficiency Acute Vomiting Acute
[2017-03-01] MEDS: ARIPiprazole 10 MG TAB PO SCH (20:20)
[2017-03-02] MEDS: LORazepam 1 MG TAB PO PRN (04:16)
[2017-03-02] MEDS: LEVOMEFOLATE PO SCH (08:21)
[2017-03-02] MEDS: ALGAL OIL PO SCH (08:21)
--- NOTE | 2017-03-02 14:45 | SOAPPROG ---
SOAP Progress Note Assessment/Plan: Assessment: Plan: 01/27/17 18:24 Remains very disorganized. WIll titrate Abilify, monitor. 01/28/17 16:06 Slight improvement. CCM. 01/29/17 15:33 Remains disorganized. More irritable/hostile today. [facility]. 02/01/17 14:[address] [facility], await hearing for COM. 02/03/17 12:[address] [facility]. 02/04/17 16:41 Pt has regressed today. Will [facility]. Await COM hearing. 02/05/17 12:54 Remains disorganized, delusional. Insight and judgment remain very poor. Will [facility]. Await hearing for COM. 02/08/17 14:48 Very disorganized, worse than I've seen him. Will [facility], await COM hearing. 02/09/17 17:54 Improved over yesterday though remains disorganized, paranoid. Clearly gravely disabled. 02/10/17 12:52 Remains paranoid, internally focused. I/J remains poor. I discussed possible Maintena and pt refuses. Await COM hearing. [facility]. 02/11/17 14:58 Trending positively over past two days. [facility]. 02/14/17 10:21 [address] [facility]. 02/22/17 14:59 No real change. Pt refuses any med changes. [facility]. Await hearing for COM. 02/23/17 17:28 Remains psychotic. Now refusing meds due to paranoid delusions and overall resistance to treatment. Adamantly against long-acting injectable. Will [facility], await COM hearing. 02/24/17 19:02 Remarkable insight today[address] Will [facility], inform pt's botany professor that he is willing to stipulate to meds. 03/01/17 19:24 Much improved overall. Await Maintena. Need family meeting for d/c. 03/02/17 14:45 Continued gradual improvement. Will proceed with Maintena when stipulation arrives. Family meeting scheduled for at 1200 for d/c planning. Subjective: Pt seen, discussed with staff. Reports feeling "pretty good." Upbeat, appropriately attending groups. Less intrusive and irritable. Remains motivated to take Maintena shot. Objective: Vital Signs Temp Pulse Resp BP Pulse Ox 36.9 C 88 16 112/59 L 94 04/11/17 06:00 03/02/17 06:00 03/02/17 06:00 03/02/17 06:00 03/02/17 06:00 Laboratory Results 02/25/17 06:25 MSE: Calm, coop. Odd, but generally approp. Affect is euthymic, stable. Mood is "good." TP linear for periods with some continued derailment and blocking. TC reveals some continued paranoid. - Time Spent With Patient Time Spent With Patient: 15" ICD10 Worksheet Patient Problems: Problems Problem Status Onset Dehydration Acute Renal insufficiency Acute Vomiting Acute
[2017-03-02] MEDS: ARIPIPRAZOLE (ABILIFY MAINTENA) 400 MG VIAL IM ONE (15:01)
[2017-03-02] MEDS: ARIPiprazole 10 MG TAB PO SCH (19:56)
[2017-03-03] MEDS: LEVOMEFOLATE PO SCH (08:21)
[2017-03-03] MEDS: ALGAL OIL PO SCH (08:21)
--- NOTE | 2017-03-03 15:36 | SOAPPROG ---
SOAP Progress Note Assessment/Plan: Assessment: Plan: 01/27/17 18:24 Remains very disorganized. WIll titrate Abilify, monitor. 01/28/17 16:06 Slight improvement. CCM. 01/29/17 15:33 Remains disorganized. More irritable/hostile today. CCM. 02/01/17 14:32 Better today. Will [facility], await hearing for COM. 02/03/17 12:07 Slow improvement. [facility]. 02/04/17 16:41 Pt has regressed today. Will [facility]. Await COM hearing. 02/05/17 12:54 Remains disorganized, delusional. Insight and judgment remain very poor. Will [facility]. Await hearing for COM. 02/08/17 14:48 Very disorganized, worse than I've seen him. Will [facility], await COM hearing. 02/09/17 17:54 Improved over yesterday though remains disorganized, paranoid. Clearly gravely disabled. 02/10/17 12:52 Remains paranoid, internally focused. I/J remains poor. I discussed possible Maintena and pt refuses. Await COM hearing. CCM. 02/11/17 14:58 Trending positively over past two days. [facility]. 02/14/17 10:21 Continued slow improvement. [facility]. 02/22/17 14:59 No real change. Pt refuses any med changes. [facility]. Await hearing for COM. 02/23/17 17:28 Remains psychotic. Now refusing meds due to paranoid delusions and overall resistance to treatment. Adamantly against long-acting injectable. Will [facility], await COM hearing. 02/24/17 19:02 Remarkable insight today. Will [facility], inform pt's deputy commonwealth's attorney that he is willing to stipulate to meds. 03/01/17 19:24 Much improved overall. Await Maintena. Need family meeting for d/c. 03/02/17 14:45 Continued gradual improvement. Will proceed with [facility] when stipulation arrives. Family meeting scheduled for at 1200 for d/c planning. 03/03/17 15:36 Doing well. Family meeting with M tomorrow. [facility]. Subjective: Pt seen, discussed with staff. Reports feeling "pretty good, but in a lot of pain." He [facility]. Otherwise tolerated it well. Objective: Vital Signs Temp Pulse Resp BP Pulse Ox 36.5 C 69 15 113/63 97 03/03/17 06:00 03/03/17 06:00 03/03/17 06:00 03/03/17 06:00 03/03/17 06:00 Laboratory Results 02/25/17 06:25 - Time Spent With Patient Time Spent With Patient: 25" ICD10 Worksheet Patient Problems: Problems Problem Status Onset Dehydration Acute Renal insufficiency Acute Vomiting Acute
[2017-03-03] MEDS: ARIPiprazole 10 MG TAB PO SCH (20:44)
[2017-03-03] MEDS: LORazepam 1 MG TAB PO PRN (20:45)
[2017-03-04 06:08] VITALS: BP 125/60; PULSE 78; RESP 14; TEMP 97.5; O2SAT 97
[2017-03-04] MEDS: LEVOMEFOLATE PO SCH (08:18)
[2017-03-04] MEDS: ALGAL OIL PO SCH (08:18)
[2017-03-04] MEDS: LORazepam 1 MG TAB PO PRN (11:14)
--- NOTE | 2017-03-04 19:26 | BDS ---
[f rep st] BEHAVIORAL HEALTH DISCHARGE SUMMARY REASON FOR ADMISSION: Patient is a 26-year-old male with a history of schizophrenia. He was admitted due to agitation and aggression at home in the setting of medication noncompliance. He has history of repeated rehospitalizations due to acute psychosis in the same setting, and also rec ently had been using cannabis which apparently significantly worsened his condition. A full descrip tion of events preceding admission can be found in Dr. Garsia' admission history dated 01/24/2017. ADMITTING DIAGNOSES: Per Dr. Garsia, schizophrenia, acute exacerbation, cannabis use disorder, claudine re, and attention deficit hyperactivity disorder by history. Admission physical examination is not found. ADMISSION LABORATORY: CBC is normal. Liver function is normal. Triglycerides, cholesterol and lip id panel are normal. Total testosterone was in the normal range at 390. HOSPITAL COURSE: [facility] on M1 hold. He wa s initially fairly agitated, angry, and extremely disorganized. He was unable to provide useful his tory as he would derail into his paranoid at times grandiose but mostly bizarre delusional systems. He was resistant to considering medications and initially refused all medications. Dr. Garsia was able to convince him to take a dose of Abilify, which he stated he thought was helpful and he contin ued to take Abilify throughout his stay. This was ultimately titrated from 5 mg to 30 mg, and he to lerated it well with no side effects. Patient's overall level of disorganization remained very high for the first several weeks of his hos pitalization. He did gradually improve as the Abilify was titrated, and with this came overall calm ing of his behaviors. Initially, he was volatile, would begin arguments with others in a disorganiz ed manner that was hard to understand. He was unable to attend groups due to his argumentativeness and later, as he calmed, he was active and an appropriate participant in groups. A behavioral issue that he exhibited during his stay, was self-induced vomiting typically after meal s or medications. He would brush his teeth, and seemingly the toothbrush was a mechanism for induci ng this vomiting. He was placed on behavioral restrictions for this and was not allowed in his room within 2 hours of meals. He does seem to curb the behaviors. This is significant as he has had a history of a diagnosis of hyperemesis related to cannabis use, which I would sincerely doubt believi ng in my prolonged observation of the patient that this is in fact a self-induced condition. The patient ultimately stipulated to court-ordered medications. We specifically requested that he t yomaira an Abilify Maintena shot, and he was agreeable to doing this. He stipulated and he was given a 400 mg Abilify Maintena on 03/02/2017. He tolerated this well with no side effects except for some minor muscle soreness in his buttocks. A family meeting was held on the day of discharge, with his mother, myself and the patient present. We discussed his course of care and recommendations to continue the oral Abilify for 2 weeks and cr oss over with the Maintena, and to continue to the Maintena indefinitely on a q.4 weeks basis. He w as agreeable to these things and stated that he believed the medicine was helpful and wanted to cont inue to take it. He was to return home with his mother and his mother was agreeable to that plan. He was to follow up with his providers in the [facility], he was ag reeable to that as well. His short-term certification was transferred to [facility] at the time of his discharge, with the court-ordered medication attachment. CONDITION ON DISCHARGE: Stable. His affect was bright, his grooming was good, his sleep was stable , his psychosis was what appeared to be baseline and he was having no evidence of irritability, host ility, or aggression. He was compliant with his oral medications and stated that he would continue to be. DISCHARGE MEDICATIONS: 1. Abilify 30 mg p.o. at bedtime for 2 weeks. 2. Abilify Maintena 400 mg deep IM q.4 weeks. 3. Deplin 1 tab daily. DISCHARGE DIAGNOSES: 1. Schizophrenia, paranoid type, chronic with acute exacerbation. 2. Cannabis use disorder, severe. Chronic illness. Family conflicts. Multiple relapses. Prolong ed out-of-home placement. DISPOSITION: Patient left the hospital with his mother who returned to her home. FOLLOWUP: [facility] in [facility]. Seeing his therapist, Brynn, on 02/20 at 1500, and Dr. Pruitt for medications on 03/18/2017 at noon. LEGAL COURSE: Patient was placed on a short-term certification at the expiration of his M1 hold. T he short-term certification was transferred to [facility] at the time of this di scharge. This contained an attachment for court-ordered medications. /[id number]/MODL
== END 2017-03-04 18:40 | disposition home or self-care (01) | DRG 885 ==
LOC: BBEH 22:20
PROVIDERS: ADMIT Psychiatry & Neurology Behavioral Neurology & Neuropsychiatry; ATTEND Psychiatry & Neurology Psychiatry
DX: F20.9 Schizophrenia, unspecified (principal); F90.9 Attention-deficit hyperactivity disorder, unspecified type; F12.20 Cannabis dependence, uncomplicated; Z91.14 Patient's other noncompliance with medication regimen
CPT/HCPCS: J0401